=== PATIENT | female | born 1965 | race Caucasian/White ===

== ENCOUNTER 2017-11-09 01:11 | Emergency (ER) | payer MEDICAID, OTHER ==
[2017-11-09] MEDS ORDERED: NORMAL SALINE 1000 ML 1,000 ML IV ONE (06:21)
[2017-11-09] MEDS ORDERED: KETOROLAC TROMETHAMINE INJ/PF 30 MG/1 ML SDV IV ONE (06:21)
--- NOTE | 2017-11-09 06:22 | ER Document Report ---
ED Extremity Problem, Lower - General Chief Complaint: Feet Swelling Stated Complaint: FEET PAIN Time Seen by Provider: 11/09/17 06:01 Notes: 51-year-old female patient to the emergency department complaining of bilateral feet pain and swelling. Patient states that she is on her feet all day long. Cannot even hardly walk on her feet because they hurt so bad. Most of the pain is in the ankles. States that they were very swollen but not swollen at this time. Has some mild redness to the bilateral distal tib-fib area as well. Denies any trauma. Is on a statin for hyperlipidemia. Does smoke. No previous history of blood clots. No previous history of pulmonary embolism. No significant family history of blood clots or PEs. TRAVEL OUTSIDE OF THE [place] IN LAST 30 DAYS: No - HPI Patient complains to provider of: Pain, Swelling Location: Ankle, Foot Occurred: Last week Where: Home - Related Data Allergies/Adverse Reactions: No Known Allergies Allergy (Verified 07/24/13 05:47) Past Medical History - General Information source: Patient - Social History Smoking Status: Current Every Day Smoker Cigarette use (# per day): Yes Chew tobacco use (# tins/day): No Frequency of alcohol use: None Drug Abuse: None Lives with: Family Family History: Reviewed & Not Pertinent Patient has suicidal ideation: No Patient has homicidal ideation: No - Past Medical History Cardiac Medical History: Reports: Hx Hypercholesterolemia, Hx Hypertension Pulmonary Medical History: Denies: Hx Tuberculosis Renal/ Medical History: Denies: Hx Peritoneal Dialysis Psychiatric Medical History: Denies: Hx Depression Past Surgical History: Reports: Hx Abdominal Surgery - hernia repair x 3, Hx Section - 1998, Hx Oral Surgery - wisdom teeth - Immunizations Hx Diphtheria, Pertussis, Tetanus Vaccination: Yes Review of Systems - Review of Systems Notes: Constitutional: denies: Chills, Diaphoresis, Fever, Malaise, Weakness EENT: denies: Eye discharge, Blurred vision, Tearing, Double vision, Nose congestion, Nose discharge, Throat swelling, Mouth pain Cardiovascular: denies: Palpitations, Heart racing, Orthopnea, Dyspnea, Chest pain Respiratory: denies: Cough, Hurts to breathe, Wheezing, Shortness of breath Gastrointestinal: denies: Abdominal pain, Diarrhea, Nausea, Vomiting, Black stools, bright red blood in stool Genitourinary: denies: Burning, Dysuria, Discharge, Frequency, Flank pain, Hematuria Musculoskeletal: Positive for the following: Bilateral feet pain, swelling of bilateral feet and ankles. Hematologic/Lymphatic: denies: Anemia, Easy bleeding, Easy bruising, Blood clots Neurological/Psychological: denies: Confusion, Dementia, Depression, Loss of consciousness Skin: No lesions, no masses, no skin breakdown, no abscesses Physical Exam - Vital signs Vitals: Temp Pulse Resp BP Pulse Ox 98.1 F 71 18 128/71 H 96 11/09/17 01:15 11/09/17 01:15 11/09/17 01:15 11/09/17 01:15 11/09/17 01:15 Interpretation: Normal - General General appearance: Appears well, Alert - HEENT Head: Normocephalic, Atraumatic Eyes: Normal Pupils: PERRL - Respiratory Respiratory status: No respiratory distress Chest status: Nontender Breath sounds: Normal Chest palpation: Normal - Cardiovascular Rhythm: Regular Heart sounds: Normal auscultation Murmur: No - Abdominal Inspection: Normal Distension: No distension Bowel sounds: Normal Tenderness: Nontender Organomegaly: No organomegaly - Back Back: Normal, Nontender - Extremities General upper extremity: Normal inspection, Nontender, Normal color, Normal ROM , Normal temperature General lower extremity: Normal inspection, Normal color, Normal ROM, Normal temperature, Normal weight bearing, Other - Range of motion of the bilateral ankles produces pain. No palpable clicks or audible clicks. There is no significant edema. Good bounding pulses to the bilateral dorsalis pedis and posterior tibialis.. No: Edema, Maksim's sign - Neurological Neuro grossly intact: Yes Cognition: Normal Orientation: AAOx4 [place] Coma Scale Eye Opening: Spontaneous [place] Coma Scale Verbal: Oriented [place] Coma Scale Motor: Obeys Commands [place] Coma Scale Total: 15 Speech: Normal Motor strength normal: LUE, RUE, LLE, RLE Sensory: Normal - Psychological Associated symptoms: Normal affect, Normal mood - Skin Skin Temperature: Warm Skin Moisture: Dry Skin Color: Normal, Other - No obvious rashes seen. There is slight red tint to the bilateral anterior distal tib-fib area Course - Re-evaluation Re-evalutation: 11/09/17 07:17 Uncertain etiology of patient's reported feet swelling and pain. Only pain that I am able to reproduce his some ankle pain bilaterally. There is no obvious swelling at this time. Will do a comprehensive workup at this time to include evaluation of LFTs, kidney function and heart function as well as ruling out DVTs 11/09/17 09:57 Labs are fairly unremarkable. Elevated d-dimer so ordered bilateral lower extremity ultrasounds. These were negative. Patient feeling better at this time. Likely more of an arthritic type problem. Will recommend hydration, anti -inflammatories and rest. Follow-up with regular doctor if symptoms persist return for any worsening symptoms or concerns. 11/09/17 09:58 Laboratory 11/09/17 11/09/17 11/09/17 07:00 07:00 07:00 WBC 7.4 RBC 4.64 Hgb 13.1 Hct 38.6 MCV 83 MCH 28.2 MCHC 33.9 RDW 13.9 Plt Count 275 Seg Neutrophils % 67.1 Lymphocytes % 19.4 Monocytes % 8.9 Eosinophils % 3.9 Basophils % 0.7 Absolute Neutrophils 5.0 Absolute Lymphocytes 1.4 Absolute Monocytes 0.7 Absolute Eosinophils 0.3 Absolute Basophils 0.1 ESR 40 H D-Dimer 0.76 H Sodium 146.7 H Potassium 3.8 Chloride 106 Carbon Dioxide 29 Anion Gap 12 BUN 13 Creatinine 0.54 Est GFR ( Amer) > 60 Est GFR (Non-Af Amer) > 60 Glucose 88 Calcium 9.5 Total Bilirubin 0.5 Direct Bilirubin 0.2 Neonat Total Bilirubin Not Reportable Neonat Direct Bilirubin Not Reportable Neonat Indirect Bili Not Reportable AST 18 ALT 22 Alkaline Phosphatase 71 Creatine Kinase 26 L C-Reactive Protein 14.0 H NT-Pro-B Natriuret Pep Total Protein 6.9 Albumin 4.0 11/09/17 07:00 WBC RBC Hgb Hct MCV MCH MCHC RDW Plt Count Seg Neutrophils % Lymphocytes % Monocytes % Eosinophils % Basophils % Absolute Neutrophils Absolute Lymphocytes Absolute Monocytes Absolute Eosinophils Absolute Basophils ESR D-Dimer Sodium Potassium Chloride Carbon Dioxide Anion Gap BUN Creatinine Est GFR ( Amer) Est GFR (Non-Af Amer) Glucose Calcium Total Bilirubin Direct Bilirubin Neonat Total Bilirubin Neonat Direct Bilirubin Neonat Indirect Bili AST ALT Alkaline Phosphatase Creatine Kinase C-Reactive Protein NT-Pro-B Natriuret Pep 171 Total Protein Albumin - Vital Signs Vital signs: Temp Pulse Resp BP Pulse Ox 98.0 F 64 16 130/74 H 98 11/09/17 06:01 11/09/17 06:01 11/09/17 06:01 11/09/17 06:01 11/09/17 06:01 - Laboratory Result Diagrams: 11/09/17 07:00 11/09/17 07:00 Laboratory results interpreted by me: 11/09/17 11/09/17 11/09/17 07:00 07:00 07:00 ESR 40 H D-Dimer 0.76 H Sodium 146.7 H Creatine Kinase 26 L C-Reactive Protein 14.0 H Discharge - Discharge Clinical Impression: Ankle swelling Qualifiers: Laterality: unspecified laterality Qualified Code(s): M25.473 - Effusion, unspecified ankle Condition: Good Disposition: HOME, SELF-CARE Instructions: Arthralgia ([facility]), Myalagia (Muscle Pain) ([facility]) Additional Instructions: In the event that your symptoms get worse, he develops shortness of breath, fever, worsening symptoms please return for repeat evaluation. Prescriptions: Ketorolac Tromethamine [Toradol 10 mg Tablet] 10 mg PO TID PRN 5 Days #20 tablet PRN Reason: For Breakthrough Pain Referrals: LATRICE MONTGOMERY MD [Primary Care Provider] - Follow up in 3-5 days
[2017-11-09 07:29] LABS: ABSOLUTE BASOPHILS # (AUTO) 0.1 10^3/uL (0.0-0.2); ABSOLUTE EOSINOPHILS # (AUTO) 0.3 10^3/uL (0.0-0.6); ABSOLUTE LYMPHOCYTES (AUTO) 1.4 10^3/uL (0.5-4.7); ABSOLUTE MONOCYTES (AUTO) 0.7 10^3/uL (0.1-1.4); BASOPHILS % (AUTO) 0.7 % (0-2); EOSINOPHILS % (AUTO) 3.9 % (0-6); HEMATOCRIT 38.6 % (36.0-47.0); HEMOGLOBIN 13.1 g/dL (12.0-15.5); LYMPHOCYTES % (AUTO) 19.4 % (13-45); MEAN CORPUSCULAR HEMOGLOBIN 28.2 pg (27.0-33.4); MEAN CORPUSCULAR HGB CONC 33.9 g/dL (32.0-36.0); MEAN CORPUSCULAR VOLUME 83 fl (80-97); MONOCYTES % (AUTO) 8.9 % (3-13); PLATELET COUNT 275 10^3/uL (150-450); RED BLOOD COUNT 4.64 10^6/uL (3.72-5.28); RED CELL DISTRIBUTION WIDTH 13.9 % (11.5-14.0); SEGMENTED NEUTROPHILS % (AUTO) 67.1 % (42-78); TOTAL CELLS COUNTED % (AUTO) 100 %; WHITE BLOOD COUNT 7.4 10^3/uL (4.0-10.5)
[2017-11-09 07:42] LABS: ALANINE AMINOTRANSFERASE 22 U/L (9-52); ALKALINE PHOSPHATASE 71 U/L (38-126); ANION GAP 12 (5-19); ASPARTATE AMINO TRANSFERASE 18 U/L (14-36); BILIRUBIN,DIRECT 0.2 mg/dL (0.0-0.4); BILIRUBIN,TOTAL 0.5 mg/dL (0.2-1.3); BLOOD UREA NITROGEN 13 mg/dL (7-20); CALCIUM 9.5 mg/dL (8.4-10.2); CARBON DIOXIDE 29 mmol/L (22-30); CHLORIDE 106 mmol/L (98-107); CREATINE KINASE 26 U/L (30-135); GLUCOSE 88 mg/dL (75-110); POTASSIUM 3.8 mmol/L (3.6-5.0); SODIUM 146.7 mmol/L (137-145); TOTAL PROTEIN 6.9 g/dL (6.3-8.2)
[2017-11-09 08:22] LABS: ERYTHROCYTE SEDIMENTATION RATE 40 mm/hr (0-30)
[2017-11-09 10:20] VITALS: BP 138/88
--- NOTE | 2017-11-09 10:36 | RADIOLOGY REPORT (SQ) ---
EXAM DESCRIPTION: VENOUS BILATERAL LOWER COMPLETED DATE/TIME: 11/09/2017 10:25 am REASON FOR STUDY: Pain and swelling COMPARISON: None. TECHNIQUE: Dynamic and static walsh scale and color images acquired of both lower extremity venous sy stems. Selected spectral images acquired with additional compression and augmentation maneuvers. Imag es stored on PACS. LIMITATIONS: None. FINDINGS: RIGHT LEG COMMON FEMORAL AND FEMORAL: Normal phasicity, compression and augmentation. No visualized echogenic m aterial on walsh scale. No defects on color images. POPLITEAL: Normal compression and augmentation. No visualized echogenic material on walsh scale. No de fects on color images. CALF VESSELS: Normal compression and augmentation. No visualized echogenic material on walsh scale. No defects on color image. GSV AND SSV: Normal compression. No visualized echogenic material on walsh scale. No defects on color images. ANY DEEP VENOUS INSUFFICIENCY: Not evaluated. ANY EVIDENCE OF POPLITEAL CYST: No. OTHER: No other significant finding. LEFT LEG COMMON FEMORAL AND FEMORAL: Normal phasicity, compression and augmentation. No visualized echogenic m aterial on walsh scale. No defects on color images. POPLITEAL: Normal compression and augmentation. No visualized echogenic material on walsh scale. No de fects on color images. CALF VESSELS: Normal compression and augmentation. No visualized echogenic material on walsh scale. No defects on color images. GSV AND SSV: Normal compression. No visualized echogenic material on walsh scale. No defects on color images. ANY DEEP VENOUS INSUFFICIENCY: Not evaluated. ANY EVIDENCE POPLITEAL CYST: No. OTHER: No other significant finding. IMPRESSION: NO EVIDENCE DVT OR SVT IN EITHER LEG. TECHNICAL DOCUMENTATION: JOB ID: [id number]- All Rights Reserved Reading location - IP/workstation name: [email or web address]
== END 2017-11-09 10:24 | disposition home or self-care (01) ==
LOC: ER 01:11
DX: M25.472 Effusion, left ankle (principal); M25.471 Effusion, right ankle; M79.671 Pain in right foot; M79.672 Pain in left foot; M25.571 Pain in right ankle and joints of right foot; M79.89 Other specified soft tissue disorders; M25.572 Pain in left ankle and joints of left foot; R79.1 Abnormal coagulation profile; E78.5 Hyperlipidemia, unspecified; Z79.899 Other long term (current) drug therapy; F17.210 Nicotine dependence, cigarettes, uncomplicated; E11.9 Type 2 diabetes mellitus without complications; I10 Essential (primary) hypertension
CPT/HCPCS: 99284; 96361; 96374; 36415; 82550; 85025; 85652; 86140; 80053; 85379; 83880; 93970; J1885; J7030

== ENCOUNTER 2018-03-28 00:29 | Observation (INO) | payer MEDICAID, OTHER ==
--- NOTE | 2018-03-28 01:31 | ER Document Report ---
ED General <LISSETTE VELÁSQUEZ - Last Filed: 03/28/18 12:10> - General TRAVEL OUTSIDE OF THE [place] IN LAST 30 DAYS: No <OMAIRA RAINES - Last Filed: 03/28/18 14:38> - General Chief Complaint: Abdominal Pain Stated Complaint: ABDOMINAL PAIN Time Seen by Provider: 03/28/18 01:31 Notes: Patient is a 52-year-old female that presents to the emergency department for chief complaint of nausea and abdominal pain. Patient states that her abdominal pain started this past Tuesday, has been worsening since then with associated nausea but no vomiting. She denies having any diarrhea, she has had a bowel movement earlier today. She is had a history of multiple abdominal hernia surgeries, the last one was in 2011, she states she has not been taking very good care of herself recently, has not follow-up with physicians, and over 2 years. She states that this pain currently is an 8 out of 10, describes as a constant aching sensation in the middle of her abdomen. She states that most of her surgeries use abdominal mass, but they have failed, to resolve her hernias. She denies any any dysuria, hematuria, chest pain, shortness of breath or difficulty breathing, she also denies any recent fevers, chills, night sweats. Past Medical History: Hypertension Past Surgical History: Multiple abdominal hernia surgeries Social History: Denies tobacco, alcohol or drug use. Family History: Reviewed and noncontributory for presenting illness Allergies: Reviewed, see documented allergy list. REVIEW OF SYSTEMS: Other than noted above, the 12 point review of systems was reviewed with the patient and were negative, all pertinent findings are included in the HPI. PHYSICAL EXAMINATION: Vital signs reviewed, nursing noted reviewed. GENERAL: Obese female, appears uncomfortable HEAD: Atraumatic, normocephalic. EYES: Eyes appear normal, extraocular movements intact, sclera anicteric, conjunctiva are normal. ENT: nares patent, oropharynx clear without exudates. Moist mucous membranes. NECK: Normal range of motion, supple without lymphadenopathy LUNGS: Breath sounds clear to auscultation bilaterally and equal. No wheezes rales or rhonchi. HEART: Regular rate and rhythm without murmurs ABDOMEN: Abdomen soft, obese, large ventral hernia palpated, diastases, and large umbilical hernia, that is able to be reduced with manual reduction. EXTREMITIES: Nontender, good range of motion, no pitting or edema. NEUROLOGICAL: No focal neurological deficits. Moves all extremities spontaneously Motor and sensory grossly intact on exam. PSYCH: Normal affect, appears uncomfortable SKIN: Warm, Dry, normal turgor, no rashes or lesions noted on exposed skin (OMAIRA RAINES) - Related Data Allergies/Adverse Reactions: No Known Allergies Allergy (Verified 03/28/18 14:00) Past Medical History - Social History Smoking Status: Never Smoker Family History: Reviewed & Not Pertinent - Past Medical History Cardiac Medical History: Reports: Hx Hypercholesterolemia, Hx Hypertension Pulmonary Medical History: Denies: Hx Tuberculosis Renal/ Medical History: Denies: Hx Peritoneal Dialysis Psychiatric Medical History: Denies: Hx Depression Past Surgical History: Reports: Hx Abdominal Surgery - hernia repair x 3, Hx Section - 1998, Hx Oral Surgery - wisdom teeth - Immunizations Hx Diphtheria, Pertussis, Tetanus Vaccination: Yes <OMAIRA RAINES - Last Filed: 03/28/18 14:38> - Vital signs Vitals: Temp Pulse Resp BP Pulse Ox 97.5 F 99 18 138/94 H 96 03/28/18 01:00 03/28/18 01:00 03/28/18 01:00 03/28/18 01:00 03/28/18 01:00 Course - Laboratory Result Diagrams: 03/28/18 02:00 03/28/18 02:00 - Diagnostic Test Radiology reviewed: Reports reviewed - CT scan suggest small bowel obstruction, small bowel series also suggest small bowel obstruction - Consults Dr. Conley Time consulted: 12:10 Consulted provider: will come to ER - Dr. Conley has been back to reevaluate the patient several times, and he and the patient have agreed to an overnight admission. <LISSETTE VELÁSQUEZ - Last Filed: 03/28/18 12:10> - Laboratory Result Diagrams: 03/28/18 02:00 03/28/18 02:00 <OMAIRA RAINES - Last Filed: 03/28/18 14:38> - Re-evaluation Re-evalutation: Patient seen and examined vital signs reviewed. Laboratory data and imaging were ordered as appropriate for the patient's presenting symptoms and complaint, with consideration of any critical or life threatening conditions that may be associated with their obtained history and exam as noted above. Patient was treated with IV fluids, morphine and Zofran initially for her pain and nausea Results were reviewed when available and demonstrated CT imaging demonstrated possible small bowel obstruction, she had multiple loops of bowel dilated on the left side of the abdomen, she has multiple hernias noted on CT, as well as presence of mesh, given her prior extensive surgical history, I placed a call to the surgeon on-call who came to see the patient in the emergency department for evaluation and consultation. Her blood work was reviewed and was essentially unremarkable, with exception of mild elevation in BUN, consistent with mild dehydration, no leukocytosis, lactic acid normal The patient was re-evaluated and was still having some pain, she was given additional IV fluids, a dose of 0.5 mg of IV Dilaudid, and repeat dose of IV Zofran. Evaluation was most consistent with Bowel obstruction and ventral hernia, complex. Call placed to surgeon national insurance officer Dr. Conley, Patient seen by Dr. Conley with surgery who was able to reduce the patients hernia, small bowel series ordered with gastrograffin, he stated he would follow-up on the results. Patient was signed out to Dr. Velásquez my colleague to determine final disposition. *Note is created using voice recognition software and may contain spelling, syntax or grammatical errors. Laboratory 03/28/18 03/28/18 03/28/18 02:00 02:00 02:28 WBC 8.3 RBC 5.39 H Hgb 14.8 Hct 43.0 MCV 80 MCH 27.5 MCHC 34.5 RDW 14.1 H Plt Count 289 Seg Neutrophils % 83.3 H Lymphocytes % 9.1 L Monocytes % 6.3 Eosinophils % 1.0 Basophils % 0.3 Absolute Neutrophils 6.9 Absolute Lymphocytes 0.8 Absolute Monocytes 0.5 Absolute Eosinophils 0.1 Absolute Basophils 0.0 Sodium 139.1 Potassium 4.0 Chloride 99 Carbon Dioxide 27 Anion Gap 13 BUN 26 H Creatinine 0.57 Est GFR ( Amer) > 60 Est GFR (Non-Af Amer) > 60 Glucose 166 H Lactic Acid 1.2 Calcium 10.3 H Total Bilirubin 1.1 Direct Bilirubin 0.2 Neonat Total Bilirubin Not Reportable Neonat Direct Bilirubin Not Reportable Neonat Indirect Bili Not Reportable AST 18 ALT 22 Alkaline Phosphatase 79 Total Protein 8.0 Albumin 4.7 Lipase 36.7 Urine Color Urine Appearance Urine pH Ur Specific [place] Urine Protein Urine Glucose (UA) Urine Ketones Urine Blood Urine Nitrite Urine Bilirubin Urine Urobilinogen Ur Leukocyte Esterase Urine WBC (Auto) Urine RBC (Auto) U Hyaline Cast (Auto) Urine Bacteria (Auto) Squamous Epi Cells Auto Urine Mucus (Auto) Urine Ascorbic Acid 03/28/18 04:05 WBC RBC Hgb Hct MCV MCH MCHC RDW Plt Count Seg Neutrophils % Lymphocytes % Monocytes % Eosinophils % Basophils % Absolute Neutrophils Absolute Lymphocytes Absolute Monocytes Absolute Eosinophils Absolute Basophils Sodium Potassium Chloride Carbon Dioxide Anion Gap BUN Creatinine Est GFR ( Amer) Est GFR (Non-Af Amer) Glucose Lactic Acid Calcium Total Bilirubin Direct Bilirubin Neonat Total Bilirubin Neonat Direct Bilirubin Neonat Indirect Bili AST ALT Alkaline Phosphatase Total Protein Albumin Lipase Urine Color DARK YELLOW Urine Appearance SLIGHTLY-CLOUDY Urine pH 5.0 Ur Specific [place] 1.035 Urine Protein 30 H Urine Glucose (UA) NEGATIVE Urine Ketones TRACE H Urine Blood NEGATIVE Urine Nitrite NEGATIVE Urine Bilirubin NEGATIVE Urine Urobilinogen 2.0 H Ur Leukocyte Esterase TRACE H Urine WBC (Auto) 8 Urine RBC (Auto) 11 U Hyaline Cast (Auto) 24 Urine Bacteria (Auto) TRACE Squamous Epi Cells Auto 3 Urine Mucus (Auto) MANY Urine Ascorbic Acid NEGATIVE Abdomen/Pelvis CT 03/28/18 00:00 IMPRESSION: Evidence of extensive prior anterior abdominal wall hernia repair with persistent abdominal wall hernias containing multiple loops of bowel. Findings concerning for small bowel obstruction associated with the hernia of the anterior abdominal wall to the left of midline containing a portion of small bowel which is mildly dilated with minor surrounding inflammation. TECHNICAL DOCUMENTATION: Quality ID # 436: Final reports with documentation of one or more dose reduction techniques (e.g., Automated exposure control, adjustment of the mA and/or kV according to patient size, use of iterative reconstruction technique) copyright 2011 [employer]- All Rights Reserved Small Bowel X-Ray 03/28/18 06:17 IMPRESSION: Partial small bowel obstruction related to a single loop in the left upper quadrant. Over the course of 5 hours significant improvement with reduction in the caliber of the distended loops. Contrast is seen in the colon. (OMAIRA RAINES) - Vital Signs Vital signs: Temp Pulse Resp BP Pulse Ox 97.5 F 99 15 148/92 H 100 03/28/18 01:00 03/28/18 01:00 03/28/18 06:25 03/28/18 12:01 03/28/18 12:01 - Laboratory Laboratory results interpreted by me: 03/28/18 03/28/18 03/28/18 02:00 02:00 04:05 RBC 5.39 H RDW 14.1 H Seg Neutrophils % 83.3 H Lymphocytes % 9.1 L BUN 26 H Glucose 166 H Calcium 10.3 H Urine Protein 30 H Urine Ketones TRACE H Urine Urobilinogen 2.0 H Ur Leukocyte Esterase TRACE H Discharge - Discharge Admitting Provider: Surgicalist Unit Admitted: Surgical Floor <LISSETTE VELÁSQUEZ - Last Filed: 03/28/18 12:10> <OMAIRA RAINES - Last Filed: 03/28/18 14:38> - Discharge Clinical Impression: Ventral hernia Qualifiers: Obstruction and gangrene presence: without obstruction or gangrene Qualified Code(s): K43.9 - Ventral hernia without obstruction or gangrene Condition: Stable Disposition: ADMITTED OBSERVATION
[2018-03-28] MEDS ORDERED: NORMAL SALINE 1000 ML 1,000 ML IV ONE ×2 (01:48→08:23)
[2018-03-28] MEDS ORDERED: MORPHINE SULFATE 10 MG/ML INJ IV ONE (01:49)
[2018-03-28] MEDS ORDERED: ONDANSETRON HCL INJ/PF 4 MG/2 ML SDV IV ONE ×3 (01:49→08:46)
[2018-03-28 02:22] LABS: ABSOLUTE EOSINOPHILS # (AUTO) 0.1 10^3/uL (0.0-0.6); ABSOLUTE LYMPHOCYTES (AUTO) 0.8 10^3/uL (0.5-4.7); ABSOLUTE MONOCYTES (AUTO) 0.5 10^3/uL (0.1-1.4); ABSOLUTE NEUT (AUTO) 6.9 10^3/uL (1.7-8.2); BASOPHILS % (AUTO) 0.3 % (0-2); HEMOGLOBIN 14.8 g/dL (12.0-15.5); LYMPHOCYTES % (AUTO) 9.1 % (13-45); MEAN CORPUSCULAR HEMOGLOBIN 27.5 pg (27.0-33.4); MEAN CORPUSCULAR HGB CONC 34.5 g/dL (32.0-36.0); MEAN CORPUSCULAR VOLUME 80 fl (80-97); MONOCYTES % (AUTO) 6.3 % (3-13); PLATELET COUNT 289 10^3/uL (150-450); RED BLOOD COUNT 5.39 10^6/uL (3.72-5.28); RED CELL DISTRIBUTION WIDTH 14.1 % (11.5-14.0); SEGMENTED NEUTROPHILS % (AUTO) 83.3 % (42-78); TOTAL CELLS COUNTED % (AUTO) 100 %; WHITE BLOOD COUNT 8.3 10^3/uL (4.0-10.5)
[2018-03-28 02:36] LABS: ALANINE AMINOTRANSFERASE 22 U/L (9-52); ALBUMIN 4.7 g/dL (3.5-5.0); ALKALINE PHOSPHATASE 79 U/L (38-126); ANION GAP 13 (5-19); ASPARTATE AMINO TRANSFERASE 18 U/L (14-36); BILIRUBIN,DIRECT 0.2 mg/dL (0.0-0.4); BILIRUBIN,TOTAL 1.1 mg/dL (0.2-1.3); BLOOD UREA NITROGEN 26 mg/dL (7-20); CALCIUM 10.3 mg/dL (8.4-10.2); CARBON DIOXIDE 27 mmol/L (22-30); CHLORIDE 99 mmol/L (98-107); GLUCOSE 166 mg/dL (75-110); LIPASE 36.7 U/L (23-300); SODIUM 139.1 mmol/L (137-145)
[2018-03-28 04:22] LABS: APPEARANCE,URINE SLIGHTLY-CLOUDY; BILIRUBIN,URINE NEGATIVE (NEGATIVE); GLUCOSE, URINE NEGATIVE (NEGATIVE); KETONES,URINE TRACE mg/dL (NEGATIVE); LEUKOCYTE ESTERASE,URINE TRACE (NEGATIVE); NITRITE,URINE NEGATIVE (NEGATIVE); PROTEIN,URINE 30 mg/dL (NEGATIVE); URINE SPECIFIC GRAVITY 1.035
[2018-03-28 04:23] LABS: COLOR,URINE DARK YELLOW
--- NOTE | 2018-03-28 05:03 | RADIOLOGY REPORT (SQ) ---
EXAM DESCRIPTION: CT ABDOMEN PELVIS WITH IV CONTRAST COMPLETED DATE/TME: 03/28/2018 00:00 CLINICAL HISTORY: 52 years, Female, abdominal pain, hx multiple hernia repairs COMPARISON: 05/14/2014 CT TECHNIQUE: [id number] Images stored on PACS. All CT scanners at this facility use dose modulation, iterative reconstruction, and/or weight based dosing when appropriate to reduce radiation dose to as low as reasonably achievable (ALARA). [facility]: Dose Right [facility]: CareDose [facility]: Dose Right [facility]: Teradose 4D [facility]: [employer] LIMITATIONS: None. FINDINGS: Limited evaluation of the lung bases is unremarkable. Osseous structures are grossly intact. Fatty infiltrative change to the liver. The spleen, adrenal glands, pancreas, kidneys are unremarkable. The gallbladder is present. Evidence of extensive prior anterior abdominal wall hernia repairs, however there are several anterior abdominal wall defects containing extensive loops of bowel. These areas of hernia formation appear similar to the prior 2014 exam, however on today's study there is a mildly dilated loop of fluid-filled small bowel which extends through one of the anterior abdominal wall defects to the left of midline. Distal loops appear decompressed, and findings are concerning for obstruction. Minor associated inflammatory changes at the hernia site. No free air or free fluid. IMPRESSION: Evidence of extensive prior anterior abdominal wall hernia repair with persistent abdominal wall hernias containing multiple loops of bowel. Findings concerning for small bowel obstruction associated with the hernia of the anterior abdominal wall to the left of midline containing a portion of small bowel which is mildly dilated with minor surrounding inflammation. TECHNICAL DOCUMENTATION: Quality ID # 436: Final reports with documentation of one or more dose reduction techniques (e.g., Automated exposure control, adjustment of the mA and/or kV according to patient size, use of iterative reconstruction technique) copyright 2011 [employer]- All Rights Reserved
[2018-03-28] MEDS ORDERED: RINGERS SOLUTION,LACTATED 1,000 ML IV ONE (05:12)
[2018-03-28] MEDS ORDERED: HYDROMORPHONE HCL INJ/PF 2 MG/ML AMPULE IV ONE ×2 (05:41→08:46)
--- NOTE | 2018-03-28 06:52 | PDOC CONSULTATION ---
Consultation Consult Date: 03/28/18 Consult reason:: abdominal pain, partial small bowel obstruction History of Present Illness Admission Date/PCP: t History of Present Illness: KENDRA MONTES DE OCA is a 52 year old female with a complex known abdominal hernia, who presents to the emergency room with approximately 2 days of increasing abdominal pain with nausea and vomiting she states that the pain is burning in nature and localized in her mid abdomen. There is a history of complex abdominal wall hernias with multiple previous repairs with mesh all of which have failed and the patient has recurrent abdominal hernias absolute that she has had a weight loss of approximately 100 pounds remains with these complex ventral hernias. CT scan done in the emergency room today which shows a possible incomplete all bowel obstruction. She currently currently complains of the abdominal wall burning and nausea. Past Medical History Cardiac Medical History: Reports: Hyperlipidema, Hypertension Pulmonary Medical History: Denies: Tuberculosis Psychiatric Medical History: Denies: Depression Past Surgical History Past Surgical History: Reports: Appendectomy, Section - 1998, Herniorrhaphy - Multiple ventral herniorrhaphies with mesh, appendectomy Social History Smoking Status: Current Every Day Smoker Frequency of Alcohol Use: Social Hx Recreational Drug Use: No Hx Prescription Drug Abuse: No Family History Family History: Reviewed & Not Pertinent Parental Family History Reviewed: No Children Family History Reviewed: Unknown Sibling(s) Family History Reviewed.: Unknown Medication/Allergy Home Medications: Lisinopril [Prinivil 20 mg Tablet] 20 mg PO DAILY 07/30/11 Lorazepam [Ativan 1 mg Tablet] 1 tab PO DAILY PRN 07/30/11 Hydrocodone/Ibuprofen [Reprexain 7.5-200 mg Tablet] 1 each PO TID PRN 07/24/13 [place]-3 Fatty Acids [Fish Oil] 300 mg PO DAILY 07/24/13 Oxycodone HCl/Acetaminophen [Percocet 5-325 mg Tablet] 1 tab PO Q4HP PRN #30 tablet 07/29/13 Ketorolac Tromethamine [Toradol 10 mg Tablet] 10 mg PO TID PRN 5 Days #20 tablet 11/09/17 Ondansetron [Zofran Odt 4 mg Tablet] 1 tab PO Q8H PRN #15 tab.rapdis 03/28/18 Allergies/Adverse Reactions: No Known Allergies Allergy (Verified 07/24/13 05:47) Physical Exam Vital Signs: Temp Pulse Resp BP Pulse Ox 97.5 F 99 15 145/102 H 99 03/28/18 01:00 03/28/18 01:00 03/28/18 06:25 03/28/18 06:25 03/28/18 06:25 Intake & Output 03/26/18 03/27/18 03/28/18 06:59 06:59 06:59 Intake Total 1000 Balance 1000 Weight 99.7 kg General appearance: PRESENT: no acute distress Head exam: PRESENT: atraumatic Eye exam: PRESENT: PERRLA Neck exam: PRESENT: full ROM Respiratory exam: PRESENT: clear to auscultation barb Cardiovascular exam: PRESENT: RRR Pulses: PRESENT: normal femoral pulses GI/Abdominal exam: PRESENT: other - Tender in the midline with palpable mesh in multiple palpable defects in the anterior abdominal wall, in the midline there was a large protruding hernia that was reduced with some compression and once this was completed I could palpate the mesh was free-floating mesh that really fixed and the abdominal musculature. There is at least 2 possibly 3 or 4 different ventral hernia defects resulting in a [place] cheeselike abdomen has a large pannus that extends down to her mons pubis. The hernia was manually reduced. Extremities exam: PRESENT: full ROM Musculoskeletal exam: PRESENT: ambulatory Results Laboratory Results: 03/28/18 02:00 03/28/18 02:00 03/28/18 03/28/18 03/28/18 02:00 02:00 02:28 WBC 8.3 RBC 5.39 H Hgb 14.8 Hct 43.0 MCV 80 MCH 27.5 MCHC 34.5 RDW 14.1 H Plt Count 289 Seg Neutrophils % 83.3 H Lymphocytes % 9.1 L Monocytes % 6.3 Eosinophils % 1.0 Basophils % 0.3 Absolute Neutrophils 6.9 Absolute Lymphocytes 0.8 Absolute Monocytes 0.5 Absolute Eosinophils 0.1 Absolute Basophils 0.0 Sodium 139.1 Potassium 4.0 Chloride 99 Carbon Dioxide 27 Anion Gap 13 BUN 26 H Creatinine 0.57 Est GFR ( Amer) > 60 Est GFR (Non-Af Amer) > 60 Glucose 166 H Lactic Acid 1.2 Calcium 10.3 H Total Bilirubin 1.1 AST 18 ALT 22 Alkaline Phosphatase 79 Total Protein 8.0 Albumin 4.7 Lipase 36.7 Urine Color Urine Appearance Urine pH Ur Specific [place] Urine Protein Urine Glucose (UA) Urine Ketones Urine Blood Urine Nitrite Ur Leukocyte Esterase Urine WBC (Auto) Urine RBC (Auto) 03/28/18 04:05 WBC RBC Hgb Hct MCV MCH MCHC RDW Plt Count Seg Neutrophils % Lymphocytes % Monocytes % Eosinophils % Basophils % Absolute Neutrophils Absolute Lymphocytes Absolute Monocytes Absolute Eosinophils Absolute Basophils Sodium Potassium Chloride Carbon Dioxide Anion Gap BUN Creatinine Est GFR ( Amer) Est GFR (Non-Af Amer) Glucose Lactic Acid Calcium Total Bilirubin AST ALT Alkaline Phosphatase Total Protein Albumin Lipase Urine Color DARK YELLOW Urine Appearance SLIGHTLY-CLOUDY Urine pH 5.0 Ur Specific [place] 1.035 Urine Protein 30 H Urine Glucose (UA) NEGATIVE Urine Ketones TRACE H Urine Blood NEGATIVE Urine Nitrite NEGATIVE Ur Leukocyte Esterase TRACE H Urine WBC (Auto) 8 Urine RBC (Auto) 11 Impressions: Abdomen/Pelvis CT 03/28/18 00:00 IMPRESSION: Evidence of extensive prior anterior abdominal wall hernia repair with persistent abdominal wall hernias containing multiple loops of bowel. Findings concerning for small bowel obstruction associated with the hernia of the anterior abdominal wall to the left of midline containing a portion of small bowel which is mildly dilated with minor surrounding inflammation. TECHNICAL DOCUMENTATION: Quality ID # 436: Final reports with documentation of one or more dose reduction techniques (e.g., Automated exposure control, adjustment of the mA and/or kV according to patient size, use of iterative reconstruction technique) copyright 2011 [employer]- All Rights Reserved Status: Image reviewed by md - CT scan that was done prior to surgical c onsultation was reviewed there is multiple loops of bowel that that protrude on top of the mesh however there is contrast reaching the colon. Assessment & Plan - Diagnosis (2) Ventral hernia Qualifiers: Obstruction and gangrene presence: without obstruction or gangrene Qualified Code(s): K43.9 - Ventral hernia without obstruction or gangrene - Plan Summary Plan Summary: Patient has a very complex hernia with multiple defects in the anterior abdominal wall that have been previously repaired with multiple different pieces of mesh patient states she has had at least 8 or 9 different operations on this with different pieces of mesh placed at different times the operation was in 2011 since that time she is lost approximately 100 pounds now presents with a incarcerated midline hernia resulting from 1 of the defects of the mesh. her hernia been reduced in the emergency room with manual reduction the patient felt better after the reduction however she will recur. After long discussion with the patient is felt that she should undergo a abdomiinal wall reconstruction as an elective procedure. she will undergo a small bowel series in the emergency room today to make sure that the small bowel is has been completely reduced that she does not exhibit a partial or incomplete small bowel obstruction and then she can be followed up in the [facility] for consideration of abdominal wall reconstruction
[2018-03-28] MEDS ORDERED: POTASSI CL 20 MEQ/D5-1/2NS 1L 1,000 ML IV PRN (12:19)
--- NOTE | 2018-03-28 13:17 | RADIOLOGY REPORT (SQ) ---
EXAM DESCRIPTION: SMALL BOWEL SERIES COMPLETED DATE/TIME: 03/28/2018 1:06 pm REASON FOR STUDY: POST-HERNIA REDUCTION COMPARISON: None. FLUOROSCOPY TIME: 0 minutes 17 images saved to PACS. LIMITATIONS: None. PROCEDURE: Initial deal architect image of abdomen acquired, followed by administration of oral contrast. Se rial radiographic images acquired. Fluoroscopic images recorded of the terminal ileum and other donna cated areas. All images stored on PACS. FINDINGS: MEDICATION ADMINISTRATION PROFESSIONAL KUB: Worrisome for upper abdominal obstruction. Multiple surgical clips and hernia clips present. STOMACH: Retained Gastrografin at 0500 hours. DUODENUM: Normal mucosal pattern with adequate distention. No displacement or obstruction. JEJUNUM: There is dilatation of a proximal jejunal loop. This is considerably improved by the latest film at 0500 hours. ILEUM: No contrast seen in the distal jejunum or ileum until the 5 hour film at which point contrast is seen distally and in the rectum. TERMINAL ILEUM AND ILEO-CECAL VALVE: Normal mucosal pattern without "cobble-stoning" or stricture. N ormal compression. PROXIMAL COLON: Contrast is seen in the rectum on the 5 hour film. OTHER: No other significant finding. IMPRESSION: Partial small bowel obstruction related to a single loop in the left upper quadrant. Ov er the course of 5 hours significant improvement with reduction in the caliber of the distended loop s. Contrast is seen in the colon. COMMENT: Quality ID 145: Final reports for procedures using fluoroscopy that document radiation exp osure indices, or exposure time and number of fluorographic images (if radiation exposure indices are not available) TECHNICAL DOCUMENTATION: JOB ID: [id number] [employer]- All Rights Reserved Reading location - IP/workstation name: [email or web address]
[2018-03-28] MEDS: ONDANSETRON HCL INJ/PF 4 MG/2 ML SDV IV PRN ×2 (15:20→22:49)
[2018-03-28] MEDS: FAMOTIDINE INJ/PF 20 MG/2 ML SDV IV SCH ×2 (15:20→21:34)
[2018-03-28] MEDS: HYDROMORPHONE HCL INJ/PF 2 MG/ML AMPULE IV PRN ×3 (15:33→22:49)
[2018-03-28] MEDS: METOCLOPRAMIDE HCL INJ/PF 10 MG/2 ML SDV IV SCH (17:19)
[2018-03-29] MEDS: METOCLOPRAMIDE HCL INJ/PF 10 MG/2 ML SDV IV SCH ×4 (01:03→17:25)
[2018-03-29 05:43] LABS: HEMATOCRIT 43.3 % (36.0-47.0); HEMOGLOBIN 14.5 g/dL (12.0-15.5); MEAN CORPUSCULAR HEMOGLOBIN 27.4 pg (27.0-33.4); MEAN CORPUSCULAR HGB CONC 33.6 g/dL (32.0-36.0); MEAN CORPUSCULAR VOLUME 82 fl (80-97); PLATELET COUNT 279 10^3/uL (150-450); RED BLOOD COUNT 5.31 10^6/uL (3.72-5.28); WHITE BLOOD COUNT 13.3 10^3/uL (4.0-10.5)
[2018-03-29 06:19] LABS: ABSOLUTE LYMPHOCYTES# (MANUAL) 0.8 10^3/uL (0.5-4.7); ABSOLUTE MONOCYTES # (MANUAL) 0.8 10^3/uL (0.1-1.4); ABSOLUTE NEUTROPHILS# (MANUAL) 11.7 10^3/uL (1.7-8.2); BAND NEUTROPHILS % (MANUAL) 1 % (3-5); BASOPHILS % (MANUAL) 0 % (0-2); EOSINOPHILS % (MANUAL) 0 % (0-6); LYMPHOCYTES % (MANUAL) 6 % (13-45); MONOCYTES % (MANUAL) 6 % (3-13); SEGMENTED NEUTROPHILS % (MAN) 87 % (42-78); TOTAL CELLS COUNTED 100
[2018-03-29 06:20] LABS: PLATELET COMMENT ADEQUATE; RBC MORPHOLOGY COMMENT NORMO-CYTIC/CHROMIC
[2018-03-29 06:23] LABS: ANION GAP 10 (5-19); BLOOD UREA NITROGEN 13 mg/dL (7-20); CALCIUM 9.7 mg/dL (8.4-10.2); CARBON DIOXIDE 26 mmol/L (22-30); CHLORIDE 101 mmol/L (98-107); GLUCOSE 141 mg/dL (75-110); POTASSIUM 4.6 mmol/L (3.6-5.0); SODIUM 137.1 mmol/L (137-145)
[2018-03-29] MEDS: ONDANSETRON HCL INJ/PF 4 MG/2 ML SDV IV PRN (08:57)
[2018-03-29] MEDS: FAMOTIDINE INJ/PF 20 MG/2 ML SDV IV SCH ×2 (09:31→21:22)
--- NOTE | 2018-03-29 19:00 | PDOC PROGRESS REPORT ---
Subjective Progress Note for:: 03/29/18 Subjective:: There is a 52-year-old female with a multiply recurrent ventral hernia. She has several pieces of mesh which appear to be completely dissociated from her abdominal wall on CT. The patient reports abdominal pain, constipation, nausea. The patient continues to pass small amounts of flatus. Her pain is cramping and diffuse. It waxes and wanes. Nothing makes it better. Palpation and movement make it worse. Patient denies chest pain, shortness of breath, fevers, chills or blurry vision, orthostasis, fatigue. Reason For Visit: SMALL BOWEL OBSTRUCTION Physical Exam Vital Signs: Temp Pulse Resp BP Pulse Ox 98.8 F 87 18 126/70 H 98 03/29/18 18:00 03/29/18 18:00 03/29/18 18:00 03/29/18 18:00 03/29/18 18:00 Intake & Output 03/28/18 03/29/18 03/30/18 06:59 06:59 06:59 Intake Total 1000 4000 Balance 1000 4000 Weight 99.7 kg 98.8 kg General appearance: PRESENT: obese Head exam: PRESENT: atraumatic, normocephalic Eye exam: PRESENT: EOMI, PERRLA. ABSENT: scleral icterus Mouth exam: PRESENT: moist, neck supple Neck exam: ABSENT: meningismus, tenderness, thyromegaly, tracheal deviation Respiratory exam: PRESENT: unlabored. ABSENT: chest wall tenderness, tachypnea, wheezes Cardiovascular exam: PRESENT: RRR Pulses: PRESENT: normal radial pulses GI/Abdominal exam: PRESENT: hernia, soft, tenderness. ABSENT: distended Rectal exam: PRESENT: deferred Extremities exam: PRESENT: clubbing Musculoskeletal exam: ABSENT: deformity Neurological exam: PRESENT: alert, awake, oriented to person, oriented to place, oriented to time, oriented to situation Psychiatric exam: ABSENT: agitated, anxious, depressed Focused psych exam: ABSENT: delusional Skin exam: ABSENT: cyanosis, erythema, jaundice Results Laboratory Results: 03/29/18 04:20 03/29/18 04:26 03/29/18 03/29/18 04:20 04:26 WBC 13.3 H RBC 5.31 H Hgb 14.5 Hct 43.3 MCV 82 MCH 27.4 MCHC 33.6 RDW 14.0 Plt Count 279 Seg Neutrophils % Not Reportable Lymphocytes % Not Reportable Monocytes % Not Reportable Eosinophils % Not Reportable Basophils % Not Reportable Absolute Neutrophils Not Reportable Absolute Lymphocytes Not Reportable Absolute Monocytes Not Reportable Absolute Eosinophils Not Reportable Absolute Basophils Not Reportable Sodium 137.1 Potassium 4.6 Chloride 101 Carbon Dioxide 26 Anion Gap 10 BUN 13 Creatinine 0.44 L Est GFR ( Amer) > 60 Est GFR (Non-Af Amer) > 60 Glucose 141 H Calcium 9.7 Magnesium 2.0 Impressions: Abdomen/Pelvis CT 03/28/18 00:00 IMPRESSION: Evidence of extensive prior anterior abdominal wall hernia repair with persistent abdominal wall hernias containing multiple loops of bowel. Findings concerning for small bowel obstruction associated with the hernia of the anterior abdominal wall to the left of midline containing a portion of small bowel which is mildly dilated with minor surrounding inflammation. TECHNICAL DOCUMENTATION: Quality ID # 436: Final reports with documentation of one or more dose reduction techniques (e.g., Automated exposure control, adjustment of the mA and/or kV according to patient size, use of iterative reconstruction technique) copyright 2011 [employer]- All Rights Reserved Small Bowel X-Ray 03/28/18 06:17 IMPRESSION: Partial small bowel obstruction related to a single loop in the left upper quadrant. Over the course of 5 hours significant improvement with reduction in the caliber of the distended loops. Contrast is seen in the colon. Assessment & Plan - Diagnosis (1) Ventral hernia Qualifiers: Obstruction and gangrene presence: without obstruction or gangrene Qualified Code(s): K43.9 - Ventral hernia without obstruction or gangrene Is this a current diagnosis for this admission?: Yes - Plan Summary Plan Summary: This is a 52-year-old female with a partially reducible ventral hernia. She reports continued abdominal pain and nausea, however she denies vomiting. The patient reports passing small amounts of flatus. She states that she "feels her intestinal contents moving". I will order her a tap water enema today to assist with mobilization of stool. Continue n.p.o. for now. Repeat abdominal x-rays and lab work tomorrow. The patient does not have signs of peritonitis at present.
[2018-03-30] MEDS ORDERED: METOCLOPRAMIDE HCL INJ/PF 10 MG/2 ML SDV ONE (04:14)
[2018-03-30] MEDS: METOCLOPRAMIDE HCL INJ/PF 10 MG/2 ML SDV IV SCH ×3 (04:14→12:45)
[2018-03-30] MEDS: HYDROMORPHONE HCL INJ/PF 2 MG/ML AMPULE IV PRN (05:43)
[2018-03-30] MEDS: ONDANSETRON HCL INJ/PF 4 MG/2 ML SDV IV PRN (05:44)
[2018-03-30 06:22] LABS: ABSOLUTE EOSINOPHILS # (AUTO) 0.1 10^3/uL (0.0-0.6); ABSOLUTE LYMPHOCYTES (AUTO) 1.4 10^3/uL (0.5-4.7); ABSOLUTE MONOCYTES (AUTO) 0.7 10^3/uL (0.1-1.4); ABSOLUTE NEUT (AUTO) 4.8 10^3/uL (1.7-8.2); BASOPHILS % (AUTO) 0.6 % (0-2); EOSINOPHILS % (AUTO) 1.7 % (0-6); HEMATOCRIT 34.2 % (36.0-47.0); LYMPHOCYTES % (AUTO) 20.2 % (13-45); MEAN CORPUSCULAR HEMOGLOBIN 27.7 pg (27.0-33.4); MEAN CORPUSCULAR HGB CONC 34.5 g/dL (32.0-36.0); MEAN CORPUSCULAR VOLUME 80 fl (80-97); MONOCYTES % (AUTO) 10.1 % (3-13); PLATELET COUNT 196 10^3/uL (150-450); RED BLOOD COUNT 4.26 10^6/uL (3.72-5.28); RED CELL DISTRIBUTION WIDTH 14.2 % (11.5-14.0); SEGMENTED NEUTROPHILS % (AUTO) 67.4 % (42-78); TOTAL CELLS COUNTED % (AUTO) 100 %; WHITE BLOOD COUNT 7.1 10^3/uL (4.0-10.5)
[2018-03-30 06:25] LABS: HEMOGLOBIN 11.8 g/dL (12.0-15.5)
[2018-03-30 06:39] LABS: ANION GAP 6 (5-19); BLOOD UREA NITROGEN 11 mg/dL (7-20); CALCIUM 8.8 mg/dL (8.4-10.2); CARBON DIOXIDE 26 mmol/L (22-30); CHLORIDE 106 mmol/L (98-107); GLUCOSE 94 mg/dL (75-110); POTASSIUM 3.7 mmol/L (3.6-5.0); SODIUM 137.7 mmol/L (137-145)
[2018-03-30] MEDS: FAMOTIDINE INJ/PF 20 MG/2 ML SDV IV SCH (09:56)
[2018-03-30 12:22] VITALS: BP 126/70
--- NOTE | 2018-03-30 13:05 | RADIOLOGY REPORT (SQ) ---
EXAM DESCRIPTION: ABDOMEN 2 VIEWS COMPLETED DATE/TIME: 03/30/2018 12:21 pm REASON FOR STUDY: Flat and upright. Abdominal pain. COMPARISON: Small bowel series [id number] NUMBER OF VIEWS: Two views. TECHNIQUE: Supine and erect/decubitus radiographic images of the abdomen acquired. LIMITATIONS: None. FINDINGS: FREE AIR: None. No abnormal gas collections. LUNG BASES: Clear. BOWEL GAS PATTERN: There is persistent dilatation of and isolated left upper quadrant small bowel loo p. Contrast is seen throughout the colon. Contrast is seen in the rectum. No distal small bowel di latation. CALCIFICATIONS: No suspicious calcifications. SOFT TISSUES: No gross mass or suggestion of organomegaly. HARDWARE: Extensive surgical clips and hernia coils. BONES: No acute fracture. No worrisome bone lesions. OTHER: No other significant finding. IMPRESSION: Persistent isolated dilated small bowel loops in the left upper quadrant. Suspect parti al SBO. No distal obstruction. TECHNICAL DOCUMENTATION: JOB ID: [id number] [employer]- All Rights Reserved Reading location - IP/workstation name: [email or web address]
--- NOTE | 2018-04-05 10:29 | PDOC H&P ---
History of Present Illness Admission Date/PCP: 03/28/18 12:33 LATRICE MONTGOMERY MD History of Present Illness: Patient Name: KENDRA MONTES DE OCA Date of : 65 Patient Status: Observation Attending Provider: SURGICALNOE PAGE MD Date: 03/28/18 06:36 Initialization Date: 03/28/18 06:36 Consultation Consult Date: 03/28/18 Consult reason:: abdominal pain, partial small bowel obstruction History of Present Illness Admission Date/PCP: t History of Present Illness: KENDRA MONTES DE OCA is a 52 year old female with a complex known abdominal hernia, who presents to the emergency room with approximately 2 days of increasing abdominal pain with nausea and vomiting she states that the pain is burning in nature and localized in her mid abdomen. There is a history of complex ab dominal wall hernias with multiple previous repairs with mesh all of which have failed and the patient has recurrent abdominal hernias absolute that she has had a weight loss of approximately 100 pounds remains with these complex ventral hernias. CT scan done in the emergency room today which shows a possible incomplete all bowel obstruction. She currently currently complains of the abdominal wall burning and nausea. Past Medical History Cardiac Medical History: Reports: Hyperlipidema, Hypertension Pulmonary Medical History: Denies: Tuberculosis Psychiatric Medical History: Denies: Depression Past Surgical History Past Surgical History: Reports: Appendectomy, Section - 1998, Herniorrhaphy - Multiple ventral herniorrhaphies with mesh, appendectomy Social History Smoking Status: Current Every Day Smoker Frequency of Alcohol Use: Social Hx Recreational Drug Use: No Hx Prescription Drug Abuse: No Family History Family History: Reviewed & Not Pertinent Parental Family History Reviewed: No Children Family History Reviewed: Unknown Sibling(s) Family History Reviewed.: Unknown Medication/Allergy Home Medications: Lisinopril [Prinivil 20 mg Tablet] 20 mg PO DAILY 07/30/11 Lorazepam [Ativan 1 mg Tablet] 1 tab PO DAILY PRN 07/30/11 Hydrocodone/Ibuprofen [Reprexain 7.5-200 mg Tablet] 1 each PO TID PRN 07/24/13 [place]-3 Fatty Acids [Fish Oil] 300 mg PO DAILY 07/24/13 Oxycodone HCl/Acetaminophen [Percocet 5-325 mg Tablet] 1 tab PO Q4HP PRN #30 tablet 07/29/13 Ketorolac Tromethamine [Toradol 10 mg Tablet] 10 mg PO TID PRN 5 Days #20 tablet 11/09/17 Ondansetron [Zofran Odt 4 mg Tablet] 1 tab PO Q8H PRN #15 tab.rapdis 03/28/18 Allergies/Adverse Reactions: No Known Allergies Allergy (Verified 07/24/13 05:47) Physical Exam Vital Signs: Temp Pulse Resp BP Pulse Ox 97.5 F 99 15 145/102 H 99 03/28/18 01:00 03/28/18 01:00 03/28/18 06:25 03/28/18 06:25 03/28/18 06:25 Intake & Output 03/26/18 03/27/18 03/28/18 06:59 06:59 06:59 Intake Total 1000 Balance 1000 Weight 99.7 kg General appearance: PRESENT: no acute distress Head exam: PRESENT: atraumatic Eye exam: PRESENT: PERRLA Neck exam: PRESENT: full ROM Respiratory exam: PRESENT: clear to auscultation barb Cardiovascular exam: PRESENT: RRR Pulses: PRESENT: normal femoral pulses GI/Abdominal exam: PRESENT: other - Tender in the midline with palpable mesh in multiple palpable defects in the anterior abdominal wall, in the midline there was a large protruding hernia that was reduced with some compression and once this was completed I could palpate the mesh was free-floating mesh that really fixed and the abdominal musculature. There is at least 2 possibly 3 or 4 different ventral hernia defects resulting in a [place] cheeselike abdomen has a large pannus that extends down to her mons pubis. The hernia was manually reduced. Extremities exam: PRESENT: full ROM Musculoskeletal exam: PRESENT: ambulatory Results Laboratory Results: 03/28/18 02:00 03/28/18 02:00 03/28/18 03/28/18 03/28/18 02:00 02:00 02:28 WBC 8.3 RBC 5.39 H Hgb 14.8 Hct 43.0 MCV 80 MCH 27.5 MCHC 34.5 RDW 14.1 H Plt Count 289 Seg Neutrophils % 83.3 H Lymphocytes % 9.1 L Monocytes % 6.3 Eosinophils % 1.0 Basophils % 0.3 Absolute Neutrophils 6.9 Absolute Lymphocytes 0.8 Absolute Monocytes 0.5 Absolute Eosinophils 0.1 Absolute Basophils 0.0 Sodium 139.1 Potassium 4.0 Chloride 99 Carbon Dioxide 27 Anion Gap 13 BUN 26 H Creatinine 0.57 Est GFR ( Amer) > 60 Est GFR (Non-Af Amer) > 60 Glucose 166 H Lactic Acid 1.2 Calcium 10.3 H Total Bilirubin 1.1 AST 18 ALT 22 Alkaline Phosphatase 79 Total Protein 8.0 Albumin 4.7 Lipase 36.7 Urine Color Urine Appearance Urine pH Ur Specific [place] Urine Protein Urine Glucose (UA) Urine Ketones Urine Blood Urine Nitrite Ur Leukocyte Esterase Urine WBC (Auto) Urine RBC (Auto) 03/28/18 04:05 WBC RBC Hgb Hct MCV MCH MCHC RDW Plt Count Seg Neutrophils % Lymphocytes % Monocytes % Eosinophils % Basophils % Absolute Neutrophils Absolute Lymphocytes Absolute Monocytes Absolute Eosinophils Absolute Basophils Sodium Potassium Chloride Carbon Dioxide Anion Gap BUN Creatinine Est GFR ( Amer) Est GFR (Non-Af Amer) Glucose Lactic Acid Calcium Total Bilirubin AST ALT Alkaline Phosphatase Total Protein Albumin Lipase Urine Color DARK YELLOW Urine Appearance SLIGHTLY-CLOUDY Urine pH 5.0 Ur Specific [place] 1.035 Urine Protein 30 H Urine Glucose (UA) NEGATIVE Urine Ketones TRACE H Urine Blood NEGATIVE Urine Nitrite NEGATIVE Ur Leukocyte Esterase TRACE H Urine WBC (Auto) 8 Urine RBC (Auto) 11 Impressions: Abdomen/Pelvis CT 03/28/18 00:00 IMPRESSION: Evidence of extensive prior anterior abdominal wall hernia repair with persistent abdominal wall hernias containing multiple loops of bowel. Findings concerning for small bowel obstruction associated with the hernia of the anterior abdominal wall to the left of midline containing a portion of small bowel which is mildly dilated with minor surrounding inflammation. TECHNICAL DOCUMENTATION: Quality ID # [id number]: Final reports with documentation of one or more dose reduction techniques (e.g., Automated exposure control, adjustment of the mA and/or kV according to patient size, use of iterative reconstruction technique) copyright 2011 [employer]- All Rights Reserved Status: Image reviewed by pr - CT scan that was done prior to surgical consultation was reviewed there is multiple loops of bowel that that protrude on top of the mesh however there is contrast reaching the colon. Assessment & Plan - Diagnosis (2) Ventral hernia Qualifiers: Obstruction and gangrene presence: without obstruction or gangrene Qualified Code(s): K43.9 - Ventral hernia without obstruction or gangrene - Plan Summary Plan Summary: Patient has a very complex hernia with multiple defects in the anterior abdominal wall that have been previously repaired with multiple different pieces of mesh patient states she has had at least 8 or 9 different operations on this with different pieces of mesh placed at different times the operation was in 2011 since that time she is lost approximately 100 pounds now presents with a incarcerated midline hernia resulting from 1 of the defects of the mesh. her hernia been reduced in the emergency room with manual reduction the patient felt better after the reduction however she will recur. After long discussion with the patient is felt that she should undergo a abdomiinal wall reconstruction as an elective procedure. she will undergo a small bowel series in the emergency room today to make sure that the small bowel is has been completely reduced that she does not exhibit a partial or incomplete small bowel obstruction and then she can be followed up in the [facility] for consideration of abdominal wall reconstruction Past Medical History Cardiac Medical History: Reports: Hyperlipidema, Hypertension Pulmonary Medical History: Denies: Tuberculosis Psychiatric Medical History: Denies: Depression Past Surgical History Past Surgical History: Reports: Appendectomy, Section - 1998, Herniorrhaphy - Multiple ventral herniorrhaphies with mesh, appendectomy Social History Smoking Status: Current Some Day Smoker Frequency of Alcohol Use: Social Hx Recreational Drug Use: No Hx Prescription Drug Abuse: No - Advance Directive Resuscitation Status: Full Code Family History Family History: Reviewed & Not Pertinent Parental Family History Reviewed: No Children Family History Reviewed: NA Sibling(s) Family History Reviewed.: NA Medication/Allergy Home Medications: No Home Medications 03/28/18 Allergies/Adverse Reactions: No Known Allergies Allergy (Verified 03/28/18 14:00) Physical Exam Vital Signs: Temp Pulse Resp BP Pulse Ox 98.4 F 68 17 126/70 H 94 03/30/18 12:18 03/30/18 12:18 03/30/18 12:18 03/30/18 12:18 03/30/18 12:18 Results Laboratory Results: 03/30/18 05:10 03/30/18 05:10 Impressions: Abdomen/Pelvis CT 03/28/18 00:00 IMPRESSION: Evidence of extensive prior anterior abdominal wall hernia repair with persistent abdominal wall hernias containing multiple loops of bowel. Findings concerning for small bowel obstruction associated with the hernia of the anterior abdominal wall to the left of midline containing a portion of small bowel which is mildly dilated with minor surrounding inflammation. TECHNICAL DOCUMENTATION: Quality ID # 436: Final reports with documentation of one or more dose reduction techniques (e.g., Automated exposure control, adjustment of the mA and/or kV according to patient size, use of iterative reconstruction technique) copyright 2011 [employer]- All Rights Reserved Small Bowel X-Ray 03/28/18 06:17 IMPRESSION: Partial small bowel obstruction related to a single loop in the left upper quadrant. Over the course of 5 hours significant improvement with reduction in the caliber of the distended loops. Contrast is seen in the colon. Abdomen X-Ray 03/30/18 06:00 IMPRESSION: Persistent isolated dilated small bowel loops in the left upper quadrant. Suspect partial SBO. No distal obstruction. Assessment & Plan - Diagnosis (2) Ventral hernia Qualifiers: Obstruction and gangrene presence: without obstruction or gangrene Qualified Code(s): K43.9 - Ventral hernia without obstruction or gangrene Is this a current diagnosis for this admission?: Yes
--- NOTE | 2018-04-06 10:22 | DISCHARGE SUMMARY E ---
Discharge Summary NAME: KENDRA MONTES DE OCA : 1965 AGE: 52Y ADMITTED: 03/28/2018 DISCHARGED: 03/30/2018 SUMMARY OF HOSPITALIZATION: The patient is a 52-year-old white female with history of known complex abdominal wall hernias and morbid obesity. She presented to the Emergency Department complaining of abdominal pain. She was evaluated with CT scan of the abdomen and was found to have findings consistent with partial small bowel obstruction, with a component of constipation. She was admitted to the surgical service for further treatment. The patient was kept n.p.o. on IV fluids. She was given cathartics. Eventually her GI tract began functioning. She had no further nausea or vomiting. Extensive conversation was held between the surgeons and the patient regarding operative intervention and options versus other options. The decision was made to defer any definitive reoperation at this time. On the third hospital day she was tolerating a diet and ready for discharge home. FINAL DIAGNOSIS: 1. PARTIAL SMALL BOWEL OBSTRUCTION, RESOLVED; POSSIBLY RELATED TO CONSTIPATION. 2. MORBID OBESITY. 3. MULTIPLE PREVIOUS ABDOMINAL WALL HERNIA REPAIRS. DISPOSITION: The patient was discharged to home care with family. Follow up with [facility], Dr. Quintin Conley. She will continue her preadmission medications and diet. DICTATING PHYSICIAN: LAYO HUNTLEY M.D. [id number] Y#: [id number] ID: [id number] JOB#: [id number] ACCT: [id number] cc:Hernan WASHBURN M.D. >
== END 2018-03-30 13:30 | disposition home or self-care (01) ==
LOC: ER 00:29 → EH 12:33 → 4N 14:00
PROVIDERS: ATTEND Surgery
DX: K56.600 Partial intestinal obstruction, unspecified as to cause (principal); E66.01 Morbid (severe) obesity due to excess calories; K59.00 Constipation, unspecified; K43.9 Ventral hernia without obstruction or gangrene; F17.200 Nicotine dependence, unspecified, uncomplicated; R14.3 Flatulence; I10 Essential (primary) hypertension; Z87.19 Personal history of other diseases of the digestive system; Z98.890 Other specified postprocedural states; Z23 Encounter for immunization; Z90.49 Acquired absence of other specified parts of digestive tract; Z79.899 Other long term (current) drug therapy
CPT/HCPCS: 96376; 99285; 96361; 96374; 96375; 36415 ×3; 83690; 83735; 85025 ×3; 80048 ×2; 80053; 81001; 83605; 74019; 74250; 74177; 90686; G0378 ×3; G0008; J2765 ×3; J2270; J1170 ×2; J3480; J2405 ×3; J7030; J7120; S0028 ×3; 90471

== ENCOUNTER 2019-07-09 12:02 | Inpatient (IN) | payer OTHER ==
[2019-07-09] MEDS ORDERED: NORMAL SALINE 1000 ML 1,000 ML IV ONE ×2 (12:38→20:39)
[2019-07-09] MEDS ORDERED: ONDANSETRON HCL INJ/PF 4 MG/2 ML SDV IV ONE (12:40)
[2019-07-09] MEDS ORDERED: MORPHINE SULFATE 10 MG/ML INJ IV ONE (12:41)
[2019-07-09 12:54] LABS: ALBUMIN 4.6 g/dL (3.5-5.0); ALKALINE PHOSPHATASE 79 U/L (38-126); ASPARTATE AMINO TRANSFERASE 16 U/L (14-36); BILIRUBIN,DIRECT 0.1 mg/dL (0.0-0.4); BILIRUBIN,TOTAL 0.5 mg/dL (0.2-1.3); BLOOD UREA NITROGEN 25 mg/dL (7-20); CHLORIDE 95 mmol/L (98-107); GLUCOSE 269 mg/dL (75-110); POTASSIUM 3.5 mmol/L (3.6-5.0); TOTAL PROTEIN 8.1 g/dL (6.3-8.2)
[2019-07-09 12:58] LABS: CREATINE KINASE < 20 U/L (30-135)
[2019-07-09 12:59] LABS: HEMATOCRIT 46.8 % (36.0-47.0); HEMOGLOBIN 16.6 g/dL (12.0-15.5); MEAN CORPUSCULAR HEMOGLOBIN 29.4 pg (27.0-33.4); MEAN CORPUSCULAR HGB CONC 35.5 g/dL (32.0-36.0); MEAN CORPUSCULAR VOLUME 83 fl (80-97); PLATELET COUNT 612 10^3/uL (150-450); RED BLOOD COUNT 5.64 10^6/uL (3.72-5.28); RED CELL DISTRIBUTION WIDTH 13.9 % (11.5-14.0); WHITE BLOOD COUNT 19.3 10^3/uL (4.0-10.5)
[2019-07-09 13:05] LABS: CARBON DIOXIDE 14 mmol/L (22-30)
[2019-07-09 13:06] LABS: ANION GAP 22 (5-19)
--- NOTE | 2019-07-09 13:12 | ER Document Report ---
Entered by KAILASH SOTO SCRIBE 07/09/19 1221 Acting as scribe for:LISSETTE SALEH MD ED GI/ - General Mode of Arrival: Ambulatory Information source: Patient TRAVEL OUTSIDE OF THE [place] IN LAST 30 DAYS: No <LISSETTE SALEH - Last Filed: 07/09/19 16:19> <KORI ALVAREZ JR - Last Filed: 07/09/19 19:25> <CRANEDEVI - Last Filed: 07/09/19 20:41> - General Stated Complaint: NAUSEA/VOMITING Time Seen by Provider: 07/09/19 12:17 Primary Care Provider: LATRICE MONTGOMERY MD [Primary Care Provider] - Follow up as needed Notes: This 53 year old female patient presents to the emergency department today with complaints of abdominal pain. Patient has a history of multiple hernia repaired with mesh and she was seen here on 03/27/19 with an SBO and she was told at that time they recommended surgery but she declined at that time. Patient states that she has also had vomiting and a cough for this same amount of time. Patient states that she has been coughing up thick off-white colored sputum. Patient states she does not remember when her last bowel movement was, but she states it was before all these symptoms began. (LISSETTE SALEH) - Related Data Allergies/Adverse Reactions: No Known Allergies Allergy (Verified 03/28/18 14:00) Past Medical History - General Information source: Patient - Social History Smoking Status: Current Some Day Smoker Cigarette use (# per day): Yes Frequency of alcohol use: None Drug Abuse: None Lives with: Family Family History: Reviewed & Not Pertinent - Past Medical History Cardiac Medical History: Reports: Hx Hypercholesterolemia, Hx Hypertension Past Surgical History: Reports: Hx Appendectomy, Hx Section - 1998, Hx Herniorrhaphy - Multiple ventral herniorrhaphies with mesh, appendectomy, Hx Oral Surgery - wisdom teeth - Immunizations Hx Diphtheria, Pertussis, Tetanus Vaccination: Yes <LISSETTE SALEH - Last Filed: 07/09/19 16:19> Review of Systems - Review of Systems Constitutional: No symptoms reported EENT: No symptoms reported Cardiovascular: No symptoms reported Respiratory: See HPI, Cough Gastrointestinal: See HPI, Abdominal pain, Nausea, Vomiting, Constipation Genitourinary: No symptoms reported Female Genitourinary: No symptoms reported Musculoskeletal: No symptoms reported Skin: No symptoms reported Hematologic/Lymphatic: No symptoms reported Neurological/Psychological: No symptoms reported -: Yes All other systems reviewed and negative <LISSETTE SALEH - Last Filed: 07/09/19 16:19> Physical Exam <LISSETTE SALEH - Last Filed: 07/09/19 16:19> - Vital signs Vitals: Temp Pulse Resp BP Pulse Ox 98.2 F 110 H 25 H 137/90 H 94 07/09/19 12:42 07/09/19 12:42 07/09/19 12:42 07/09/19 12:42 07/09/19 12:42 - Notes Notes: Physical Exam: General: Alert, appears uncomfortable. HEENT: Normocephalic. Atraumatic. PERRL. Extraocular movements intact. Oropharynx clear. Neck: Supple. Non-tender. Respiratory: Mild respiratory distress. Wheezing and rhonchi bilaterally. Thick-off white sputum. Cardiovascular: Regular rate and rhythm. Abdominal: Multiple large abdominal wall hernias. Emesis bag at bedside has dark liquid consistent with SBO. Right sided hernias are firm with large bowel and likely constipation. Left sided hernias appear to have large amounts of fluid wh en intestines are palpated consistent with small bowel obstruction. Back: No gross abnormalities. Extremities: Moves all four extremities. Upper extremities: Normal inspection. Normal ROM. Lower extremities: Normal inspection. No edema. Normal ROM. Neurological: Normal cognition. AAOx4. Normal speech. Psychological: Normal affect. Normal Mood. Skin: Warm. Dry. Normal color. (LISSETTE SALEH) Course - Laboratory Result Diagrams: 07/09/19 12:08 07/09/19 12:08 - EKG Interpretation by In EKG shows normal: Sinus rhythm, [place], Intervals, QRS Complexes, ST-T Waves Rate: Tachycardia - 106 [place]/QRS: Left axis deviation, IVCD When compared to previous EKG there are: No significant change - Transfer of Care Care transferred to following provider: Dr. Alvarez <LISSETTE SALEH - Last Filed: 07/09/19 16:19> - Laboratory Result Diagrams: 07/09/19 12:08 07/09/19 12:08 <KORI ALVAREZ JR - Last Filed: 07/09/19 19:25> - Laboratory Result Diagrams: 07/09/19 12:08 07/09/19 12:08 - Diagnostic Test Radiology reviewed: Image reviewed, Reports reviewed <DEVI CRANE - Last Filed: 07/09/19 20:41> - Re-evaluation Re-evalutation: 07/09/19 16:19 NG tube was placed and approximately 750 mL's of dark liquid was aspirated. (LISSETTE SALEH) 07/09/19 20:37 The patient was signed out to me at shift change since the Surgeon science consultant had not seen the patient in the ER. Dr. Batista of Surgery evaluated the patient and he feels she is safe for a medical admission. Dr. Clifton of the Hospitalist Service was consulted and he admitted the patient. (DEVI CRANE) - Vital Signs Vital signs: Temp Pulse Resp BP Pulse Ox 98.2 F 110 H 25 H 137/90 H 94 07/09/19 12:42 07/09/19 12:42 07/09/19 12:42 07/09/19 12:42 07/09/19 12:42 - Laboratory Laboratory results interpreted by me: 07/09/19 07/09/19 12:08 12:08 WBC 19.3 H RBC 5.64 H Hgb 16.6 H Plt Count 612 H Band Neutrophils % 13 H Lymphocytes % (Manual) 4 L Monocytes % (Manual) 14 H Abs Neuts (Manual) 15.2 H Abs Monocytes (Manual) 2.7 H Sodium 130.8 L Potassium 3.5 L Chloride 95 L Carbon Dioxide 14 L Anion Gap 22 H BUN 25 H Est GFR (MDRD) Non-Af 52 L Glucose 269 H Creatine Kinase < 20 L - Transfer of Care Notes: 07/09/19 16:[address] scan of the abdomen pelvis and chest with IV and oral contrast. (LISSETTE SALEH) Critical Care Note - Critical Care Note Total time excluding time spent on procedures (mins): 90 <KORI ALVAREZ JR - Last Filed: 07/09/19 19:25> - Critical Care Note Comments: I discussed this case @ [address] Tank Batista who advised this patient should be turned over immediately to hospitalist. I discussed this case with Dr. Martinez and he advises calling Dr. Garrido when CTs are performed and done. This case was again discussed with Dr. Batista at 1911 and he was being overwhelmed with a lot of patients and asked that Dr. Estuardo Hanks to accept the patient but it 1916 Dr. Marte advised he has gotten hit with at least 2 patients himself and will have to refer back to surgery. Dr. Tank Batista called back at 1919 and he advised advancing the NG tube 10 cm and giving the patient bicarb and he will evaluate the patient in the room. (KORI ALVAREZ JR) Discharge <LISSETTE SALEH - Last Filed: 07/09/19 16:19> <KORI ALVAREZ JR - Last Filed: 07/09/19 19:25> - Discharge Admitting Provider: Etienne (Hospitalist) Unit Admitted: Medical Floor <DEVI CRANE - Last Filed: 07/09/19 20:41> - Discharge Clinical Impression: Bronchitis, Dehydration, Hyponatremia, Small bowel obstruction Nausea & vomiting Qualifiers: Vomiting type: unspecified Vomiting Intractability: intractable Qualified Code(s): R11.2 - Nausea with vomiting, unspecified Leukocytosis Qualifiers: Leukocytosis type: bandemia Qualified Code(s): D72.825 - Bandemia Condition: Stable Disposition: ADMITTED INPATIENT Referrals: LATRICE MONTGOMERY MD [Primary Care Provider] - Follow up as needed I personally performed the services described in the documentation, reviewed and edited the documentation which was dictated to the scribe in my presence, and it accurately records my words and actions.
[2019-07-09 13:20] LABS: BASOPHILS % (MANUAL) 0 % (0-2); EOSINOPHILS % (MANUAL) 0 % (0-6); SEGMENTED NEUTROPHILS % (MAN) 65 % (42-78); TOTAL CELLS COUNTED 100
[2019-07-09 13:21] LABS: ABSOLUTE LYMPHOCYTES# (MANUAL) 1.4 10^3/uL (0.5-4.7); ABSOLUTE MONOCYTES # (MANUAL) 2.7 10^3/uL (0.1-1.4); BAND NEUTROPHILS % (MANUAL) 13 % (3-5); LYMPHOCYTES % (MANUAL) 4 % (13-45); METAMYELOCYTES % (MANUAL) 1 % (0-1); MONOCYTES % (MANUAL) 14 % (3-13); PLATELET CLUMPS PRESENT; PLATELET COMMENT INCREASED; POLYCHROMASIA SLIGHT
--- NOTE | 2019-07-09 14:11 | EKG REPORT ---
SEVERITY:- ABNORMAL ECG - SINUS TACHYCARDIA NONSPECIFIC IVCD WITH LAD CONSIDER ANTERIOR INFARCT : Confirmed by: Erin Wahl MD 09-Jul-2019 14:11:00
[2019-07-09] MEDS ORDERED: PIPERACILLIN/TAZOBACTAM 3.375 GM VIAL IV ONE (14:16)
--- NOTE | 2019-07-09 14:37 | PDOC CONSULTATION ---
Consultation Consult Date: 07/09/19 Attending physician:: RIKI SALEH Provider Consulted: LAYO HUNTLEY Consult reason:: Abdominal pain nausea and vomiting History of Present Illness Admission Date/PCP: LATRICE MONTGOMERY MD History of Present Illness: KENDRA MONTES DE OCA is a 53 year old female Presents via ground rescue with a several day history of abdominal pain nausea vomiting decreased bowel movements. Patient is also had cough and productive sputum. She is evaluated emergency department found to have a distended abdomen, no leukocytosis. Surgery was consulted. Patient well-known to [facility]. She has a history of morbid obesity, multiple abdominal wall hernias. In 2013 she underwent open hernia repair by Dr. Disla. Since then she has had recurrent hernias, symptomatic, occasionally with a small bowel obstruction, resolving nonoperatively. She is offered referral to tertiary care institution for abdominal wall reconstruction but declined. She is a smoker has COPD and chronic cough. Surgery was consulted for possible small bowel o bstruction. Films pending at time of this dictation Past Medical History Past Medical History: Obesity, hyperlipidemia, COPD Cardiac Medical History: Reports: Hyperlipidema, Hypertension Pulmonary Medical History: Denies: Tuberculosis Psychiatric Medical History: Reports: Depression Past Surgical History Past Surgical History: Multiple previous abdominal wall hernias Past Surgical History: Reports: Appendectomy, Section - 1998, Herniorrhaphy - Multiple ventral herniorrhaphies with mesh, appendectomy Social History Lives with: Family Smoking Status: Current Some Day Smoker Electronic Cigarette use?: No Frequency of Alcohol Use: Social Hx Recreational Drug Use: No Hx Prescription Drug Abuse: No Family History Family History: None, Reviewed & Not Pertinent Parental Family History Reviewed: No Children Family History Reviewed: No Sibling(s) Family History Reviewed.: No Medication/Allergy Home Medications: No Home Medications 03/28/18 Allergies/Adverse Reactions: No Known Allergies Allergy (Verified 03/28/18 14:00) Review of Systems ROS unobtainable: Other - Due to limited time exposed to the patient due to rule out COVID status Physical Exam Vital Signs: Temp Pulse Resp BP Pulse Ox 98.2 F 110 H 25 H 137/90 H 94 07/09/19 12:42 07/09/19 12:42 07/09/19 12:42 07/09/19 12:42 07/09/19 12:42 General appearance: PRESENT: mild distress, morbidly obese, other - Skin pale, poor turgor Eye exam: PRESENT: conjunctiva pale Mouth exam: PRESENT: dry mucosa Neck exam: PRESENT: full ROM Respiratory exam: PRESENT: rhonchi Cardiovascular exam: PRESENT: RRR Pulses: PRESENT: normal carotid pulses, normal radial pulses GI/Abdominal exam: PRESENT: other - Abdomen distended multiple irregular abdominal wall hernias with thin skin, soft, no rigidity no peritoneal signs at this time; exam limited due to pain medication received Extremities exam: PRESENT: other - +1 edema Neurological exam: PRESENT: other - Patient agitated,, no focal deficits Psychiatric exam: PRESENT: agitated Results Laboratory Results: 07/09/19 12:08 07/09/19 12:08 07/09/19 07/09/19 07/09/19 12:08 12:08 13:00 WBC 19.3 H RBC 5.64 H Hgb 16.6 H Hct 46.8 MCV 83 MCH 29.4 MCHC 35.5 RDW 13.9 Plt Count 612 H Seg Neutrophils % Not Reportable Sodium 130.8 L Potassium 3.5 L Chloride 95 L Carbon Dioxide 14 L Anion Gap 22 H BUN 25 H Creatinine 1.10 Est GFR ( Amer) > 60 Glucose 269 H Calcium 10.0 Total Bilirubin 0.5 AST 16 Alkaline Phosphatase 79 Total Protein 8.1 Albumin 4.6 Urine Color Cancelled Urine Appearance Cancelled Urine pH Cancelled Ur Specific [place] Cancelled Urine Protein Cancelled Urine Glucose (UA) Cancelled Urine Ketones Cancelled Urine Blood Cancelled Urine Nitrite Cancelled Ur Leukocyte Esterase Cancelled Urine WBC (Auto) Cancelled Urine RBC (Auto) Cancelled 07/09/19 07/09/19 12:08 12:08 Creatine Kinase < 20 L Troponin I < 0.012 Assessment & Plan - Diagnosis (1) Partial small bowel obstruction Is this a current diagnosis for this admission?: Yes Plan: Impression: Sepsis; small bowel obstruction, likely partial, based on clinical presentation and physical exam; await imaging studies; leukocytosis, metabolic acidosis, chronic cough may be related to intra-abdominal or intrathoracic pathology. Chest x-ray pending; patient does not have peritoneal signs on exam, however limited secondary to patient receiving pain medication. Recommendations: 1. Patient needs admission to the hospital service with surgery consulting; fluid resuscitation, electrolyte orthodox, Ferguson antibiotic therapy, pul monary support as necessary, 2. Agree with nasogastric decompression; we will follow-up on x-rays, additional imaging if ordered pending patient's ability to tolerate such 3. I spoke with Dr. Riki Gutierrez regarding the above. We will follow patient closely with you. (2) Obesity Is this a current diagnosis for this admission?: Yes (3) Smoker Is this a current diagnosis for this admission?: Yes (4) Dehydration Is this a current diagnosis for this admission?: Yes (5) COPD (chronic obstructive pulmonary disease) Is this a current diagnosis for this admission?: Yes (6) Leukocytosis Is this a current diagnosis for this admission?: Yes (7) Ventral hernia Qualifiers: Obstruction and gangrene presence: without obstruction or gangrene Qualified Code(s): K43.9 - Ventral hernia without obstruction or gangrene Is this a current diagnosis for this admission?: Yes (8) Metabolic acidosis Is this a current diagnosis for this admission?: Yes - Time Time Spent: 30 to 50 Minutes Smoking Cessation Education: 3 to 10 minutes Medications reviewed and adjusted accordingly: Yes Anticipated discharge: Home
--- NOTE | 2019-07-09 15:22 | RADIOLOGY REPORT (SQ) ---
EXAM DESCRIPTION: KUB/ABDOMEN (SINGLE VIEW) IMAGES COMPLETED DATE/TIME: 07/09/2019 3:05 pm REASON FOR STUDY: upright COMPARISON: None. NUMBER OF VIEWS: One view. TECHNIQUE: Supine radiographic image of the abdomen acquired. LIMITATIONS: None. FINDINGS: BOWEL GAS PATTERN: Normal bowel gas pattern. No dilated loops. CALCIFICATIONS: No suspicious calcifications. SOFT TISSUES: No gross mass or suggestion of organomegaly. HARDWARE: NG tube tip overlies the left mid abdomen probably overlying stomach. Prior hernia repair. BONES: No acute fracture. No worrisome bone lesions. OTHER: No other significant finding. IMPRESSION: No acute findings. NG tube is in place as described. TECHNICAL DOCUMENTATION: JOB ID: [id number] 2010 [employer]- All Rights Reserved Reading location - IP/workstation name: [email or web address]
--- NOTE | 2019-07-09 15:22 | RADIOLOGY REPORT (SQ) ---
EXAM DESCRIPTION: CHEST SINGLE VIEW IMAGES COMPLETED DATE/TIME: 07/09/2019 3:05 pm REASON FOR STUDY: upright COMPARISON: None. EXAM PARAMETERS: NUMBER OF VIEWS: One view. TECHNIQUE: Single frontal radiographic view of the chest acquired. RADIATION DOSE: NA LIMITATIONS: None. FINDINGS: LUNGS AND PLEURA: No opacities, masses or pneumothorax. No pleural effusion. MEDIASTINUM AND HILAR STRUCTURES: No masses. Contour normal. HEART AND VASCULAR STRUCTURES: Heart normal in size. Normal vasculature. BONES: No acute findings. HARDWARE: NG tube is in place. Tip is not seen but is well below the GE junction. OTHER: No other significant finding. IMPRESSION: NO ACUTE RADIOGRAPHIC FINDING IN THE CHEST. TECHNICAL DOCUMENTATION: JOB ID: [id number] 2010 [employer]- All Rights Reserved Reading location - IP/workstation name: [email or web address]
[2019-07-09] MEDS ORDERED: RINGERS SOLUTION,LACTATED 1,000 ML IV ONE (15:55)
--- NOTE | 2019-07-09 19:04 | RADIOLOGY REPORT (SQ) ---
EXAM DESCRIPTION: CT ABD/PELVIS WITH IV ORAL; CT CHEST WITH IMAGES COMPLETED DATE/TIME: 07/09/2019 6:32 pm REASON FOR STUDY: sbo RADIATION DOSE: CT Rad equipment meets quality standard of care and radiation dose reduction techniq ues were employed. CTDIvol: 13.5 - 17.6 mGy. DLP: 1925 mGy-cm. . 30 mGy. LIMITATIONS: None. Comparison: CT abdomen pelvis 05/14/2014, 03/28/2018 Small bowel series 03/28/2018 KUB 07/09/2019 FINDINGS: There is diffuse distention of the esophagus from gastroesophageal reflux. An nasogastric tube is present. Massive distention of the stomach, duodenum, and jejunum is present. The patient has 3 midline ventral hernias, each containing dilated and non dilated small bowel loops. Hernias are as follows: Right lower quadrant hernia, axial image 80, coronal image 18. Abdominal wall defect measures at lora st 5 cm in diameter, hernia both dilated small bowel and nondilated small bowel and right colon. Left lower quadrant ventral hernia axial image 84, coronal image 19 through 25, abdominal wall defect at least 5 cm in diameter. Hernia contains both dilated and nondilated small bowel loops. Midline ventral panniculus hernia sagittal image 5, axial image coronal image 19. Abdominal wall def ect at 11 cm diameter. This hernia both dilated and nondilated small bowel loops. Review of the prior CT exam 03/28/2018 demonstrated the three ventral hernias, patient had a high-gra de proximal small bowel obstruction related to tethered loops along the left lower quadrant hernia at that time in 2018. CHEST: LUNGS AND PLEURA: Patchy bibasilar airspace disease is present, atelectasis versus aspiration. No pleural effusion. No pneumothorax. HILAR AND MEDIASTINAL STRUCTURES: Massive distention of the esophagus throughout the chest. There is a nasogastric tube throughout the esophagus, with the tip in the stomach. No mediastinal masses or adenopathy. HEART AND VASCULAR STRUCTURES: No aneurysm or dissection. No central pulmonary emboli. No pericardi al effusion. HARDWARE: Nasogastric tube tip in the stomach THYROID AND OTHER SOFT TISSUES: No masses. No adenopathy. BONES: No significant finding. OTHER: No other significant finding. ABDOMEN AND PELVIS: LIVER: Normal size. No masses. No dilated ducts. SPLEEN: Normal size. No focal lesions. PANCREAS: No masses. No significant calcifications. No adjacent inflammation or peripancreatic fluid collections. Pancreatic duct not dilated. GALLBLADDER: No identified stones by CT criteria. No inflammatory changes to suggest cholecystitis. ADRENAL GLANDS: No significant masses or asymmetry. RIGHT KIDNEY AND URETER: No solid masses. No significant calcification. No hydronephrosis or hydroure ter. LEFT KIDNEY AND URETER: No solid masses. No significant calcification. No hydronephrosis or hydrouret er. AORTA AND VESSELS: No aneurysm. No dissection. Renal arteries, SMA, celiac without stenosis. RETROPERITONEUM: No retroperitoneal adenopathy, hemorrhage or masses. BOWEL AND PERITONEAL CAVITY: As above. No ascites. No free intraperitoneal air or free fluid. APPENDIX: Normal. In the right lower quadrant hernia sac ABDOMINAL WALL: As above. Mesh from old ventral hernia repair coronal image 29 PELVIS: No mass or free fluid. Normal bladder. Normal size female pelvic organs BONES: No significant or acute findings. OTHER: No other significant finding. IMPRESSION: High-grade bowel obstruction with markedly distended stomach and esophagus Nasogastric tube tip in the stomach Ventral hernias containing bone dilated and nondilated small bowel. Mesh from old prior ventral mary ia surgery. NORMAL CT OF THE ABDOMEN AND PELVIS WITH ORAL AND INTRAVENOUS CONTRAST. TECHNICAL DOCUMENTATION: JOB ID: [id number] Quality ID # [id number]: Final reports with documentation of one or more dose reduction techniques (e.g., Au tomated exposure control, adjustment of the mA and/or kV according to patient size, use of iterative reconstruction technique) 2010 [employer]- All Rights Reserved RENAL FUNCTION: Creatinine 1.1 TECHNIQUE: CT scan of the chest performed using helical scanning technique with dynamic intravenous contrast injection. Images reviewed with lung, soft tissue and bone windows. Reconstructed coronal a nd sagittal MPR images reviewed. All images stored on PACS. CT scan of the abdomen and pelvis performed with intravenous and without oral contrastusing helical s chen technique with dynamic intravenous contrast injection. Images reviewed with lung, soft tissu e and bone windows. Reconstructed coronal and sagittal MPR images reviewed. Delayed images for eval uation of the urinary system also acquired and evaluated. All images stored on PACS. All CT scanners at this facility use dose modulation, iterative reconstruction, and/or weight based d osing when appropriate to reduce radiation dose to as low as reasonably achievable (ALARA). [facility]: Dose Right [facility]: CareDose [facility]: Dose Right [facility]: Teradose 4D [facility]: [employer] COMPARISON: Abdominal films 07/09/2027, 03/30/2018, 03/28/2018 CT abdomen pelvis 03/28/2018, 05/14/2014 CONTRAST TYPE AND DOSE: contrast/concentration: Isovue 350.00 mg/ml; Total Contrast Delivered: 94.0 ml; Total Saline Delivered: 47.8 ml Reading location - IP/workstation name: [id number]
[2019-07-09] MEDS ORDERED: DEXTROSE 5%-WATER 1000 ML 1,000 ML with SODIUM BICARBONATE 50 MEQ IV PRN ×2 (19:23)
[2019-07-09] MEDS ORDERED: SODIUM BICARBONATE 8.4% INJ 50 MEQ/50 ML DISP.SYRIN ONE ×3 (20:41→22:39)
[2019-07-09] MEDS ORDERED: RINGERS SOLUTION,LACTATED 1,000 ML IV PRN (21:33)
[2019-07-09] MEDS ORDERED: PROMETHAZINE HCL INJ 25 MG/1 ML VIAL IV PRN (21:33)
[2019-07-09] MEDS ORDERED: NICOTINE 21 MG/24 HR PATCH.TD24 TD PRN (21:38)
[2019-07-09] MEDS ORDERED: MORPHINE SULFATE 10 MG/ML INJ IV PRN (21:38)
[2019-07-09] MEDS ORDERED: LORAZEPAM INJ 2 MG/1 ML VIAL IV PRN (21:38)
[2019-07-09] MEDS ORDERED: ACETAMINOPHEN 650 MG SUPP.RECT PR PRN (21:38)
[2019-07-09] MEDS ORDERED: DEXTROSE 50%-WATER 25 GM/50 ML DISP.SYRIN IV PRN ×2 (21:40)
[2019-07-09] MEDS ORDERED: DEXTROSE 40% GEL 15 GM TUBE PO PRN ×2 (21:40)
[2019-07-09] MEDS ORDERED: GLUCAGON,HUMAN RECOMB 1 MG INJ IM PRN (21:40)
[2019-07-09] MEDS: POTASSI CL 20 MEQ/50 ML RIDER 20 MEQ/50 ML RTUPB IV SCH (21:49)
[2019-07-09 23:48] LABS: APPEARANCE,URINE SLIGHTLY-CLOUDY; BILIRUBIN,URINE NEGATIVE (NEGATIVE); COLOR,URINE YELLOW; GLUCOSE, URINE NEGATIVE (NEGATIVE); KETONES,URINE NEGATIVE (NEGATIVE); LEUKOCYTE ESTERASE,URINE NEGATIVE (NEGATIVE); NITRITE,URINE NEGATIVE (NEGATIVE); PROTEIN,URINE 30 mg/dL (NEGATIVE); UROBILINOGEN,URINE NEGATIVE mg/dL (<2.0)
[2019-07-10] MEDS: LEVALBUTEROL HCL NEB 0.63 MG/3 ML AMPUL NEB PRN ×3 (00:18→20:34)
[2019-07-10] MEDS: POTASSI CL 20 MEQ/50 ML RIDER 20 MEQ/50 ML RTUPB IV SCH ×2 (00:30→03:12)
[2019-07-10] MEDS: HEPARIN SOD (PORCINE) 5,000 UNIT/ML 1 ML VIAL SUBCUT SCH ×4 (00:30→21:56)
[2019-07-10] MEDS: FAMOTIDINE INJ/PF 20 MG/2 ML SDV IV SCH ×3 (00:30→21:56)
[2019-07-10] MEDS: MORPHINE SULFATE 10 MG/ML INJ IV PRN ×3 (00:31→15:49)
--- NOTE | 2019-07-10 03:08 | PDOC H&P ---
History of Present Illness Admission Date/PCP: 07/09/2019 21:06 LATRICE MONTGOMERY MD Patient complains of: Abdominal pain History of Present Illness: KENDRA MONTES DE OCA is a 53 year old female who presents to the emergency room with a 5-day history of abdominal pain. She admits developing constant waxing and waning generalized, nonradiating aching and cramping abdominal pain accompanied by decreased urine output, severe nausea with vomiting and associated with a cough productive of whitish mucus. Her pain varies from moderate to extremely severe. She denies other associated or accompanying signs and symptoms. She admits multiple similar prior episodes due to intermittent small bowel obst ructions. She has not identified any aggravating or ameliorating factors for her abdominal pain. In the emergency room she was found to have an elevated white blood count but the CT of the abdomen and pelvis revealed a small bowel obstruction. She was subsequently admitted to the hospital for further evaluation and treatment at the request of the consulting surgeon Dr. Batista. Past Medical History Cardiac Medical History: Reports: Hyperlipidema, Hypertension Pulmonary Medical History: Reports: Chronic Obstructive Pulmonary Disease (COPD) Denies: Asthma, Tuberculosis EENT Medical History: Denies: Cataracts, Ears - Hearing aids Neurological Medical History: Denies: Hemorrhagic CVA, Ischemic CVA, Seizures Endocrine Medical History: Denies: Diabetes Mellitus Type 1, Diabetes Mellitus Type 2, Hyperthyroidism, Hypothyroidism Renal/ Medical History: Denies: Chronic Kidney Disease, Nephrolithiasis Malignancy Medical History: Reports: None GI Medical History: Reports: Other - Multiple recurrent hernias, small bowel obstructions Denies: Cirrhosis, Hepatitis Musculoskeltal Medical History: Denies: Arthritis, Gout Skin Medical History: Denies: Eczema, Psoriasis Psychiatric Medical History: Reports: Depression, Tobacco Dependency Denies: Alcohol Dependency, Substance Abuse Traumatic Medical History: Reports: None Hematology: Denies: Anemia, Bleeding Tendencies Infectious Medical History: Reports: None Past Surgical History Past Surgical History: Reports: Appendectomy, Section - 1998, Herniorrhaphy - Multiple ventral herniorrhaphies with mesh Social History Information Source: Patient Lives with: Family Smoking Status: Current Every Day Smoker Electronic Cigarette use?: No Frequency of Alcohol Use: Social Hx Recreational Drug Use: No Drugs: None Hx Prescription Drug Abuse: No - Advance Directive Resuscitation Status: Full Code Surrogate healthcare decision maker:: Trent Montes De Oca Family History Family History: Arthritis, CAD, Hypertension, Malignancy, Other - Alcoholism. denies: DM Parental Family History Reviewed: Yes Children Family History Reviewed: No Sibling(s) Family History Reviewed.: Yes Medication/Allergy Home Medications: No Home Medications 03/28/18 Allergies/Adverse Reactions: No Known Allergies Allergy (Verified 03/28/18 14:00) Review of Systems Constitutional: ABSENT: chills, fever(s) Eyes: ABSENT: visual disturbances, other - Eye pain Ears: ABSENT: hearing changes, other - Ear pain Nose, Mouth, and Throat: ABSENT: headache(s), sore throat Cardiovascular: ABSENT: chest pain, palpitations Respiratory: PRESENT: as per HPI, cough, sputum - Whitish Gastrointestinal: PRESENT: as per HPI, abdominal pain, bloating - Abdominal distention, constipation - No stool for 5 days or more, nausea, vomiting. ABSENT: diarrhea, hematemesis Genitourinary: PRESENT: other - Decreased urinary output. ABSENT: dysuria, hematuria Musculoskeletal: ABSENT: back pain, joint swelling Integumentary: ABSENT: pruritus, rash Neurological: ABSENT: confusion, convulsions, focal weakness, memory loss, syncope Psychiatric: ABSENT: anxiety, depression Endocrine: ABSENT: cold intolerance, heat intolerance, polydipsia, polyphagia, polyuria Hematologic/Lymphatic: ABSENT: easy bleeding, easy bruising Allergic/Immunologic: ABSENT: seasonal rhinorrhea Physical Exam Vital Signs: Temp Pulse Resp BP Pulse Ox 98.2 F 110 H 25 H 137/90 H 94 07/09/19 12:42 07/09/19 12:42 07/09/19 12:42 07/09/19 12:42 07/09/19 12:42 Intake & Output 07/07/19 07/08/19 07/09/19 23:59 23:59 23:59 Intake Total 4900 Balance 4900 General appearance: PRESENT: cooperative, mild distress - Secondary to abdominal pain, morbidly obese Head exam: PRESENT: atraumatic, normocephalic Eye exam: ABSENT: conjunctival injection, scleral icterus Ear exam: PRESENT: normal external ear exam. ABSENT: bleeding, drainage Mouth exam: PRESENT: dry mucosa, neck supple Neck exam: ABSENT: thyromegaly, tracheal deviation Respiratory exam: PRESENT: clear to auscultation barb, symmetrical, unlabored Cardiovascular exam: PRESENT: RRR. ABSENT: clicks, gallop, rubs Pulses: PRESENT: normal radial pulses, normal dorsalis pedis pul Vascular exam: PRESENT: normal capillary refill. ABSENT: pallor GI/Abdominal exam: PRESENT: distended, hernia - Large ventral hernia noted, hypoactive bowel sounds - Tympanitic tinkling, tenderness - Generalized abdominal tenderness on palpation Rectal exam: PRESENT: deferred Extremities exam: ABSENT: joint swelling, pedal edema Musculoskeletal exam: ABSENT: deformity, dislocation Neurological exam: PRESENT: alert, oriented to person, oriented to place, oriented to time, oriented to situation, CN II-XII grossly intact. ABSENT: motor sensory deficit Psychiatric exam: PRESENT: appropriate affect, normal mood Skin exam: PRESENT: dry, intact, warm. ABSENT: jaundice, rash, urticaria Results Laboratory Results: 07/09/19 12:08 07/09/19 12:08 07/09/19 07/09/19 07/09/19 12:08 12:08 13:00 WBC 19.3 H RBC 5.64 H Hgb 16.6 H Hct 46.8 MCV 83 MCH 29.4 MCHC 35.5 RDW 13.9 Plt Count 612 H Seg Neutrophils % Not Reportable Sodium 130.8 L Potassium 3.5 L Chloride 95 L Carbon Dioxide 14 L Anion Gap 22 H BUN 25 H Creatinine 1.10 Est GFR ( Amer) > 60 Glucose 269 H Lactic Acid Calcium 10.0 Total Bilirubin 0.5 AST 16 Alkaline Phosphatase 79 Total Protein 8.1 Albumin 4.6 Urine Color Cancelled Urine Appearance Cancelled Urine pH Cancelled Ur Specific [place] Cancelled Urine Protein Cancelled Urine Glucose (UA) Cancelled Urine Ketones Cancelled Urine Blood Cancelled Urine Nitrite Cancelled Ur Leukocyte Esterase Cancelled Urine WBC (Auto) Cancelled Urine RBC (Auto) Cancelled 07/09/19 14:25 WBC RBC Hgb Hct MCV MCH MCHC RDW Plt Count Seg Neutrophils % Sodium Potassium Chloride Carbon Dioxide Anion Gap BUN Creatinine Est GFR ( Amer) Glucose Lactic Acid 1.9 Calcium Total Bilirubin AST Alkaline Phosphatase Total Protein Albumin Urine Color Urine Appearance Urine pH Ur Specific [place] Urine Protein Urine Glucose (UA) Urine Ketones Urine Blood Urine Nitrite Ur Leukocyte Esterase Urine WBC (Auto) Urine RBC (Auto) 07/09/19 07/09/19 12:08 12:08 Creatine Kinase < 20 L Troponin I < 0.012 Impressions: Abdomen/Pelvis CT 07/09/19 00:00 IMPRESSION: High-grade bowel obstruction with markedly distended stomach and esophagus Nasogastric tube tip in the stomach Ventral hernias containing bone dilated and nondilated small bowel. Mesh from old prior ventral hernia surgery. NORMAL CT OF THE ABDOMEN AND PELVIS WITH ORAL AND INTRAVENOUS CONTRAST. Chest X-Ray 07/09/19 14:02 IMPRESSION: NO ACUTE RADIOGRAPHIC FINDING IN THE CHEST. KUB X-Ray 07/09/19 14:02 IMPRESSION: No acute findings. NG tube is in place as described. Chest CT 07/09/19 15:10 IMPRESSION: High-grade bowel obstruction with markedly distended stomach and esophagus Nasogastric tube tip in the stomach Ventral hernias containing bone dilated and nondilated small bowel. Mesh from old prior ventral hernia surgery. NORMAL CT OF THE ABDOMEN AND PELVIS WITH ORAL AND INTRAVENOUS CONTRAST. Assessment and Plan - Diagnosis (1) Small bowel obstruction Is this a current diagnosis for this admission?: Yes (2) Ventral hernia Qualifiers: Obstruction and gangrene presence: without obstruction or gangrene Qualified Code(s): K43.9 - Ventral hernia without obstruction or gangrene Is this a current diagnosis for this admission?: Yes (3) Dehydration Is this a current diagnosis for this admission?: Yes (4) Leukocytosis Qualifiers: Leukocytosis type: bandemia Qualified Code(s): D72.825 - Bandemia Is this a current diagnosis for this admission?: Yes (5) Hyponatremia Is this a current diagnosis for this admission?: Yes (6) Metabolic acidosis Is this a current diagnosis for this admission?: Yes (7) Nausea & vomiting Qualifiers: Vomiting type: unspecified Vomiting Intractability: intractable Qualified Code(s): R11.2 - Nausea with vomiting, unspecified Is this a current diagnosis for this admission?: Yes (8) COPD (chronic obstructive pulmonary disease) Qualifiers: COPD type: unspecified COPD Qualified Code(s): J44.9 - Chronic obstructive pulmonary disease, unspecified Is this a current diagnosis for this admission?: Yes (9) Morbid obesity Is this a current diagnosis for this admission?: Yes (10) Smoker Is this a current diagnosis for this admission?: Yes - Plan Summary Summary: Patient is admitted to the medical floor for routine supportive and symptomatic cares. A surgical consult has been obtained with Dr. Batista. Patient will have a Germain catheter and an NG tube to low intermittent suction. She will receive IV fluids for maintenance and she will be n.p.o. She will receive morp soraida sulfate 2 to 4 mg IV every 2 hours on as-needed basis for pain using a sliding scale for dosage. She received Ativan 1 mg IV every 4 hours as needed for anxiety or restlessness. CBCs, metabolic profiles and magnesium levels to be obtained as needed. Smoking cessation is advised and counseled briefly at the bedside. Patient will have a nicotine replacement patch available for her use, if desired. - Time Time Spent with patient: 15-24 minutes Smoking Cessation Education: 3 to 10 minutes Medications reviewed and adjusted accordingly: Yes Anticipated discharge: Home - Inpatient Certification Based on my medical assessment, after consideration of the patient's comorbidities, presenting symptoms, or acuity I expect that the services needed warrant INPATIENT care.: Yes I certify that my determination is in accordance with my understanding of Medicare's requirements for reasonable and necessary INPATIENT services [42 CFR 412.3e].: Yes Medical Necessity: Significant Comorbidiites Make Outpatient Treatment Too Risky, Need Close Monitoring Due to Risk of Patient Decompensation, Need For IV Fluids, Need for Pain Control, Need for Surgery
[2019-07-10 05:49] LABS: HEMATOCRIT 35.5 % (36.0-47.0); MEAN CORPUSCULAR HEMOGLOBIN 29.2 pg (27.0-33.4); MEAN CORPUSCULAR HGB CONC 35.8 g/dL (32.0-36.0); MEAN CORPUSCULAR VOLUME 82 fl (80-97); PLATELET COUNT 397 10^3/uL (150-450); RED BLOOD COUNT 4.35 10^6/uL (3.72-5.28); RED CELL DISTRIBUTION WIDTH 13.9 % (11.5-14.0); WHITE BLOOD COUNT 10.1 10^3/uL (4.0-10.5)
[2019-07-10 05:50] LABS: HEMOGLOBIN 12.7 g/dL (12.0-15.5)
[2019-07-10 06:02] LABS: BLOOD UREA NITROGEN 17 mg/dL (7-20); CALCIUM 8.2 mg/dL (8.4-10.2); CHLORIDE 97 mmol/L (98-107); GLUCOSE 103 mg/dL (75-110); POTASSIUM 3.8 mmol/L (3.6-5.0)
[2019-07-10 06:12] LABS: ANION GAP 9 (5-19)
[2019-07-10 06:17] LABS: CARBON DIOXIDE 25 mmol/L (22-30)
[2019-07-10 06:31] LABS: THYROID STIMULATING HORMONE 0.68 uIU/mL (0.47-4.68)
[2019-07-10 06:32] LABS: FREE T3 2.52 pg/mL (2.77-5.27)
[2019-07-10 09:34] LABS: PATH REVIEW PATHOLOGIST REVIEWED
[2019-07-10] MEDS ORDERED: PHENOL/SODIUM PHENOLATE 100 SPRAY/177 ML BOTTLE PO PRN (12:02)
--- NOTE | 2019-07-10 12:43 | PDOC PROGRESS REPORT ---
Subjective Progress Note for:: 07/10/19 Subjective:: This is a 53-year-old female with several large internal hernia defects, presenting with a small bowel obstruction. She has nausea, vomiting, and obstipation. Patient reports that she feels much better than yesterday, however her NG tube continues to be productive. She denies any flatus or bowel movements at this time. The patient currently denies chest pain, shortness of breath, fevers, chills, nausea, vomiting, orthostasis, fatigue. She does have a productive cough. Reason For Visit: RECURRENT SMALL BOWEL OBSTRUCTION Physical Exam Vital Signs: Temp Pulse Resp BP Pulse Ox 98.4 F 94 18 108/65 90 L 07/09/19 23:00 07/10/19 00:20 07/10/19 00:20 07/09/19 23:00 07/10/19 00:20 Intake & Output 07/09/19 07/10/19 07/11/19 06:59 06:59 06:59 Intake Total 7000 Output Total 1450 Balance 5550 Weight 82.2 kg General appearance: PRESENT: no acute distress, cooperative Head exam: PRESENT: atraumatic, normocephalic Eye exam: PRESENT: EOMI, PERRLA Mouth exam: PRESENT: moist, neck supple Neck exam: ABSENT: meningismus, tenderness, thyromegaly, tracheal deviation Respiratory exam: PRESENT: unlabored. ABSENT: tachypnea, wheezes Cardiovascular exam: ABSENT: tachycardia Vascular exam: PRESENT: normal capillary refill GI/Abdominal exam: PRESENT: distended, hernia - Small bowel is palpable beneath the skin in the ventral midline. I can palpate at least 2 separate hernia defects., soft, tenderness - Mild to moderate, other - Her hernia feels partially reducible. There is no sign of peritonitis or acute abdomen.. ABSENT: guarding, rebound Rectal exam: PRESENT: deferred Extremities exam: ABSENT: clubbing Musculoskeletal exam: ABSENT: deformity Neurological exam: PRESENT: alert, awake, oriented to person, oriented to place, oriented to time, oriented to situation, CN II-XII grossly intact Psychiatric exam: ABSENT: agitated, anxious, depressed Focused psych exam: ABSENT: delusional Skin exam: ABSENT: cyanosis, erythema, jaundice Results Laboratory Results: 07/10/19 05:14 07/10/19 05:14 07/09/19 07/09/19 07/09/19 12:08 12:08 13:00 WBC 19.3 H RBC 5.64 H Hgb 16.6 H Hct 46.8 MCV 83 MCH 29.4 MCHC 35.5 RDW 13.9 Plt Count 612 H Seg Neutrophils % Not Reportable Sodium 130.8 L Potassium 3.5 L Chloride 95 L Carbon Dioxide 14 L Anion Gap 22 H BUN 25 H Creatinine 1.10 Est GFR ( Amer) > 60 Glucose 269 H Lactic Acid Calcium 10.0 Magnesium Total Bilirubin 0.5 AST 16 Alkaline Phosphatase 79 Total Protein 8.1 Albumin 4.6 TSH Free T3 pg/mL Urine Color Cancelled Urine Appearance Cancelled Urine pH Cancelled Ur Specific [place] Cancelled Urine Protein Cancelled Urine Glucose (UA) Cancelled Urine Ketones Cancelled Urine Blood Cancelled Urine Nitrite Cancelled Ur Leukocyte Esterase Cancelled Urine WBC (Auto) Cancelled Urine RBC (Auto) Cancelled 07/09/19 07/09/19 07/10/19 14:25 21:00 05:14 WBC 10.1 RBC 4.35 Hgb 12.7 D Hct 35.5 L MCV 82 MCH 29.2 MCHC 35.8 RDW 13.9 Plt Count 397 Seg Neutrophils % Sodium Potassium Chloride Carbon Dioxide Anion Gap BUN Creatinine Est GFR ( Amer) Glucose Lactic Acid 1.9 Calcium Magnesium Total Bilirubin AST Alkaline Phosphatase Total Protein Albumin TSH Free T3 pg/mL Urine Color YELLOW Urine Appearance SLIGHTLY-CLOUDY Urine pH 5.0 Ur Specific [place] 1.060 Urine Protein 30 H Urine Glucose (UA) NEGATIVE Urine Ketones NEGATIVE Urine Blood SMALL H Urine Nitrite NEGATIVE Ur Leukocyte Esterase NEGATIVE Urine WBC (Auto) 6 Urine RBC (Auto) 5 07/10/19 07/10/19 05:14 05:14 WBC RBC Hgb Hct MCV MCH MCHC RDW Plt Count Seg Neutrophils % Sodium 130.5 L Potassium 3.8 Chloride 97 L Carbon Dioxide 25 D Anion Gap 9 BUN 17 Creatinine 0.48 L Est GFR ( Amer) > 60 Glucose 103 Lactic Acid Calcium 8.2 L Magnesium 1.8 Total Bilirubin AST Alkaline Phosphatase Total Protein Albumin TSH 0.68 Free T3 pg/mL 2.52 L Urine Color Urine Appearance Urine pH Ur Specific [place] Urine Protein Urine Glucose (UA) Urine Ketones Urine Blood Urine Nitrite Ur Leukocyte Esterase Urine WBC (Auto) Urine RBC (Auto) 07/09/19 07/09/19 12:08 12:08 Creatine Kinase < 20 L Troponin I < 0.012 Impressions: Abdomen/Pelvis CT 07/09/19 00:00 IMPRESSION: High-grade bowel obstruction with markedly distended stomach and esophagus Nasogastric tube tip in the stomach Ventral hernias containing bone dilated and nondilated small bowel. Mesh from old prior ventral hernia surgery. NORMAL CT OF THE ABDOMEN AND PELVIS WITH ORAL AND INTRAVENOUS CONTRAST. Chest X-Ray 07/09/19 14:02 IMPRESSION: NO ACUTE RADIOGRAPHIC FINDING IN THE CHEST. KUB X-Ray 07/09/19 14:02 IMPRESSION: No acute findings. NG tube is in place as described. Chest CT 07/09/19 15:10 IMPRESSION: High-grade bowel obstruction with markedly distended stomach and esophagus Nasogastric tube tip in the stomach Ventral hernias containing bone dilated and nondilated small bowel. Mesh from old prior ventral hernia surgery. NORMAL CT OF THE ABDOMEN AND PELVIS WITH ORAL AND INTRAVENOUS CONTRAST. Assessment & Plan - Diagnosis (1) Small bowel obstruction Is this a current diagnosis for this admission?: Yes - Plan Summary Plan Summary: This is a 53-year-old female with a small bowel obstruction and a multiply recurrent ventral hernia. She had approximately 4 L of NG output yesterday. At the bedside today, I have manipulated the NG tube and removed another 2 L of output. Continue with NG decompression for now. Hopefully this will resolve her bowel obstruction. If she requires an operation, it will be a lengthy and arduous undertaking. She has a very high possibility of reaccumulating her vent ral hernia. Surgery will continue to follow this patient very closely with you.
[2019-07-10] MEDS ORDERED: DEXTROSE 5%-LACTATED RINGERS 1,000 ML IV PRN (16:14)
--- NOTE | 2019-07-10 16:21 | PDOC PROGRESS REPORT ---
Subjective Progress Note for:: 07/10/19 Subjective:: Patient states that her nausea feels better since NG tube was placed. Currently draining and not from NG tube. Still has some abdominal pain. States that she has had several episodes of small bowel obstruction before. Patient has not had any flatus no bowel movement. Reason For Visit: RECURRENT SMALL BOWEL OBSTRUCTION Physical Exam Vital Signs: Temp Pulse Resp BP Pulse Ox 99.2 F 88 18 99/49 L 93 07/10/19 12:03 07/10/19 13:07 07/10/19 13:07 07/10/19 12:03 07/10/19 12:03 Intake & Output 07/09/19 07/10/19 07/11/19 06:59 06:59 06:59 Intake Total 7000 Output Total 1450 3000 Balance 5550 -3000 Weight 82.2 kg General appearance: PRESENT: no acute distress, cooperative Neck exam: ABSENT: JVD Respiratory exam: PRESENT: clear to auscultation barb, unlabored. ABSENT: tachypnea, wheezes Cardiovascular exam: PRESENT: RRR, +S1, +S2. ABSENT: tachycardia GI/Abdominal exam: PRESENT: hernia, soft. ABSENT: firm, guarding, normal bowel sounds, rebound, rigid, tenderness Neurological exam: PRESENT: alert, awake, oriented to person, oriented to place, oriented to time, oriented to situation Results Laboratory Results: 07/10/19 05:14 07/10/19 05:14 07/09/19 07/10/19 07/10/19 21:00 05:14 05:14 WBC 10.1 RBC 4.35 Hgb 12.7 D Hct 35.5 L MCV 82 MCH 29.2 MCHC 35.8 RDW 13.9 Plt Count 397 Sodium 130.5 L Potassium 3.8 Chloride 97 L Carbon Dioxide 25 D Anion Gap 9 BUN 17 Creatinine 0.48 L Est GFR ( Amer) > 60 Glucose 103 Calcium 8.2 L Magnesium 1.8 TSH Free T3 pg/mL Urine Color YELLOW Urine Appearance SLIGHTLY-CLOUDY Urine pH 5.0 Ur Specific [place] 1.060 Urine Protein 30 H Urine Glucose (UA) NEGATIVE Urine Ketones NEGATIVE Urine Blood SMALL H Urine Nitrite NEGATIVE Ur Leukocyte Esterase NEGATIVE Urine WBC (Auto) 6 Urine RBC (Auto) 5 07/10/19 05:14 WBC RBC Hgb Hct MCV MCH MCHC RDW Plt Count Sodium Potassium Chloride Carbon Dioxide Anion Gap BUN Creatinine Est GFR ( Amer) Glucose Calcium Magnesium TSH 0.68 Free T3 pg/mL 2.52 L Urine Color Urine Appearance Urine pH Ur Specific [place] Urine Protein Urine Glucose (UA) Urine Ketones Urine Blood Urine Nitrite Ur Leukocyte Esterase Urine WBC (Auto) Urine RBC (Auto) 07/09/19 07/09/19 12:08 12:08 Creatine Kinase < 20 L Troponin I < 0.012 Impressions: Abdomen/Pelvis CT 07/09/19 00:00 IMPRESSION: High-grade bowel obstruction with markedly distended stomach and esophagus Nasogastric tube tip in the stomach Ventral hernias containing bone dilated and nondilated small bowel. Mesh from old prior ventral hernia surgery. NORMAL CT OF THE ABDOMEN AND PELVIS WITH ORAL AND INTRAVENOUS CONTRAST. Chest X-Ray 07/09/19 14:02 IMPRESSION: NO ACUTE RADIOGRAPHIC FINDING IN THE CHEST. KUB X-Ray 07/09/19 14:02 IMPRESSION: No acute findings. NG tube is in place as described. Chest CT 07/09/19 15:10 IMPRESSION: High-grade bowel obstruction with markedly distended stomach and esophagus Nasogastric tube tip in the stomach Ventral hernias containing bone dilated and nondilated small bowel. Mesh from old prior ventral hernia surgery. NORMAL CT OF THE ABDOMEN AND PELVIS WITH ORAL AND INTRAVENOUS CONTRAST. Assessment and Plan - Diagnosis (1) Small bowel obstruction Is this a current diagnosis for this admission?: Yes Plan: Recurrent complete high-grade small bowel obstruction. NG tube in place. Surgery following. Will place patient on D5 lactated Ringer's while patient is n.p.o. Has not passed flatus. Monitor electrolytes with daily metabolic panels and replete as needed. (2) Dehydration Is this a current diagnosis for this admission?: Yes Plan: IV fluids (3) Hyponatremia Is this a current diagnosis for this admission?: Yes Plan: Sodium of 130 likely secondary to dehydration/hypovolemia. Should likely improve with IV fluids. (4) Smoker Is this a current diagnosis for this admission?: Yes Plan: Nicotine patch as needed (5) Ventral hernia Qualifiers: Obstruction and gangrene presence: without obstruction or gangrene Qualifi ed Code(s): K43.9 - Ventral hernia without obstruction or gangrene Is this a current diagnosis for this admission?: Yes Plan: Stable at this time - Time Time Spent with patient: Less than 15 minutes
--- NOTE | 2019-07-11 00:09 | RADIOLOGY REPORT (SQ) ---
EXAM DESCRIPTION: [facility]: XR CHEST 1 VIEW CLINICAL HISTORY: 53 years Female; NG tube placememt; FINDINGS: Since yesterday, nasogastric tube is in place, tip in the body the stomach. Lungs are grossly unchanged, although exposure technique for this exam is optimized to visualize the nasogastric tube. Upper abdominal clips are noted. Mediastinum is grossly unremarkable. IMPRESSION: Nasogastric tube tip in the stomach
[2019-07-11 05:16] LABS: HEMATOCRIT 31.7 % (36.0-47.0); HEMOGLOBIN 11.3 g/dL (12.0-15.5); MEAN CORPUSCULAR HEMOGLOBIN 29.6 pg (27.0-33.4); MEAN CORPUSCULAR HGB CONC 35.7 g/dL (32.0-36.0); MEAN CORPUSCULAR VOLUME 83 fl (80-97); PLATELET COUNT 277 10^3/uL (150-450); RED BLOOD COUNT 3.83 10^6/uL (3.72-5.28); RED CELL DISTRIBUTION WIDTH 14.2 % (11.5-14.0); WHITE BLOOD COUNT 7.7 10^3/uL (4.0-10.5)
[2019-07-11 05:49] LABS: ALBUMIN 2.7 g/dL (3.5-5.0); ALKALINE PHOSPHATASE 43 U/L (38-126); ANION GAP 6 (5-19); ASPARTATE AMINO TRANSFERASE 15 U/L (14-36); BILIRUBIN,TOTAL 0.1 mg/dL (0.2-1.3); BLOOD UREA NITROGEN 10 mg/dL (7-20); CALCIUM 7.9 mg/dL (8.4-10.2); CARBON DIOXIDE 27 mmol/L (22-30); CHLORIDE 97 mmol/L (98-107); GLUCOSE 92 mg/dL (75-110); POTASSIUM 3.3 mmol/L (3.6-5.0); TOTAL PROTEIN 5.4 g/dL (6.3-8.2)
[2019-07-11] MEDS: HEPARIN SOD (PORCINE) 5,000 UNIT/ML 1 ML VIAL SUBCUT SCH ×3 (06:11→21:09)
[2019-07-11] MEDS: MORPHINE SULFATE 10 MG/ML INJ IV PRN ×2 (06:39→11:10)
[2019-07-11] MEDS ORDERED: DEXTROSE 5%-LACTATED RINGERS 1,000 ML with POTASSIUM CHLORIDE 20 MEQ IV PRN ×2 (08:36)
[2019-07-11] MEDS: LEVALBUTEROL HCL NEB 0.63 MG/3 ML AMPUL NEB PRN (08:57)
--- NOTE | 2019-07-11 09:21 | RADIOLOGY REPORT (SQ) ---
EXAM DESCRIPTION: KUB/ABDOMEN (SINGLE VIEW) IMAGES COMPLETED DATE/TIME: 07/11/2019 8:58 am REASON FOR STUDY: sbo COMPARISON: CT dated 07/09/2019 and KUB dated 07/09/2019 NUMBER OF VIEWS: One view. TECHNIQUE: Supine radiographic image of the abdomen acquired. LIMITATIONS: None. FINDINGS: BOWEL GAS PATTERN: Persistent large and small bowel distention. Curvilinear lucency now n oted along the inferior margin of the liver. Free air cannot be excluded. This can be confirmed wit h upright view or cross-table lateral as clinically indicated. CALCIFICATIONS: No suspicious calcifications. SOFT TISSUES: No gross mass or suggestion of organomegaly. HARDWARE: Surgical hardware throughout the abdomen and pelvis. NG tube remains in place. BONES: No acute fracture. No worrisome bone lesions. OTHER: No other significant finding. IMPRESSION: Persistent large and small bowel distention. Possible pneumoperitoneum on today's film. Correlation with upright view of the abdomen or cross-table lateral would be helpful for further ev aluation. COMMENT: This report was called to VJ GIRALDO MD at09:14 on 07/11/2019. TECHNICAL DOCUMENTATION: JOB ID: [id number] 2010 [employer]- All Rights Reserved Reading location - IP/workstation name: [email or web address]
[2019-07-11] MEDS ORDERED: AMPICILLIN SOD/SULBACTAM 3 GM VIAL IV SCH (10:00)
--- NOTE | 2019-07-11 10:07 | RADIOLOGY REPORT (SQ) ---
EXAM DESCRIPTION: ABDOMEN 2 VIEWS IMAGES COMPLETED DATE/TIME: 07/11/2019 9:57 am REASON FOR STUDY: r/o free air. upright and cross-table lateral COMPARISON: None. NUMBER OF VIEWS: Two views. TECHNIQUE: Supine and erect/decubitus radiographic images of the abdomen acquired. LIMITATIONS: None. FINDINGS: FREE AIR: None. No abnormal gas collections. LUNG BASES: Clear. BOWEL GAS PATTERN: Scattered air-fluid levels consistent with known small-bowel obstruction. NG tube is in satisfactory position. CALCIFICATIONS: No suspicious calcifications. SOFT TISSUES: No gross mass or suggestion of organomegaly. HARDWARE: Postsurgical changes throughout the abdomen are again noted. BONES: No acute fracture. No worrisome bone lesions. OTHER: No other significant finding. IMPRESSION: No free air is identified. Changes on the KUB presumably represent fat along the inferi or margin of the liver. Persistent small-bowel distention with scattered air-fluid levels. NG tube is in satisfactory position. TECHNICAL DOCUMENTATION: JOB ID: [id number] 2010 [employer]- All Rights Reserved Reading location - IP/workstation name: [email or web address]
[2019-07-11] MEDS: AMPICILLIN SODIUM/SULBACTAM NA 3 GM in NORMAL SALINE 100 ML IV SCH ×2 (10:26→18:16)
[2019-07-11] MEDS: FAMOTIDINE INJ/PF 20 MG/2 ML SDV IV SCH ×2 (10:27→21:09)
[2019-07-11] MEDS: POTASSI CL 20 MEQ/D5LR 1L 20 MEQ/1,000 ML RTUINJ IV PRN ×2 (10:29→21:09)
[2019-07-11] MEDS: ESCITALOPRAM OXALATE 10 MG TABLET PO SCH (11:08)
--- NOTE | 2019-07-11 13:02 | PDOC PROGRESS REPORT ---
Subjective Progress Note for:: 07/11/19 Subjective:: Patient still having some cough. Denies any nausea vomiting. NG tube still in place. Reason For Visit: RECURRENT SMALL BOWEL OBSTRUCTION Physical Exam Vital Signs: Temp Pulse Resp BP Pulse Ox 98.1 F 86 20 123/52 L 90 L 07/11/19 07:38 07/11/19 08:58 07/11/19 08:58 07/11/19 07:38 07/11/19 09:03 Intake & Output 07/10/19 07/11/19 07/12/19 06:59 06:59 06:59 Intake Total 7000 450 Output Total 1450 5275 Balance 7050 -5834 Weight 82.2 kg 82.2 kg General appearance: PRESENT: no acute distress, cooperative Neck exam: ABSENT: JVD Respiratory exam: PRESENT: clear to auscultation barb, unlabored. ABSENT: tachypnea, wheezes Cardiovascular exam: PRESENT: RRR, +S1, +S2. ABSENT: tachycardia GI/Abdominal exam: PRESENT: hernia, hypoactive bowel sounds, soft, tenderness - Mild. ABSENT: rebound, rigid Neurological exam: PRESENT: alert, awake, oriented to person, oriented to place, oriented to time Results Laboratory Results: 07/11/19 04:47 07/11/19 04:47 07/11/19 07/11/19 04:47 04:47 WBC 7.7 RBC 3.83 Hgb 11.3 L Hct 31.7 L MCV 83 MCH 29.6 MCHC 35.7 RDW 14.2 H Plt Count 277 Sodium 130.3 L Potassium 3.3 L Chloride 97 L Carbon Dioxide 27 Anion Gap 6 BUN 10 Creatinine 0.37 L Est GFR ( Amer) > 60 Glucose 92 Calcium 7.9 L Magnesium 1.7 Total Bilirubin 0.1 L AST 15 Alkaline Phosphatase 43 Total Protein 5.4 L Albumin 2.7 L 07/09/19 13:00 Sputum Gram Stain - Final 07/09/19 13:00 Sputum Sputum Culture - Final Klebsiella Pneumoniae Normal Divya 07/09/19 07/09/19 12:08 12:08 Creatine Kinase < 20 L Troponin I < 0.012 Impressions: Abdomen/Pelvis CT 07/09/19 00:00 IMPRESSION: High-grade bowel obstruction with markedly distended stomach and esophagus Nasogastric tube tip in the stomach Ventral hernias containing bone dilated and nondilated small bowel. Mesh from old prior ventral hernia surgery. NORMAL CT OF THE ABDOMEN AND PELVIS WITH ORAL AND INTRAVENOUS CONTRAST. Chest CT 07/09/19 15:10 IMPRESSION: High-grade bowel obstruction with markedly distended stomach and esophagus Nasogastric tube tip in the stomach Ventral hernias containing bone dilated and nondilated small bowel. Mesh from old prior ventral hernia surgery. NORMAL CT OF THE ABDOMEN AND PELVIS WITH ORAL AND INTRAVENOUS CONTRAST. Chest X-Ray 07/10/19 00:00 IMPRESSION: Nasogastric tube tip in the stomach Abdomen X-Ray 07/11/19 00:00 IMPRESSION: No free air is identified. Changes on the KUB presumably represent fat along the inferior margin of the liver. Persistent small-bowel distention with scattered air-fluid levels. NG tube is in satisfactory position. KUB X-Ray 07/11/19 00:00 IMPRESSION: Persistent large and small bowel distention. Possible pneumoperitoneum on today's film. Correlation with upright view of the abdomen or cross-table lateral would be helpful for further evaluation. Assessment and Plan - Diagnosis (1) Small bowel obstruction Is this a current diagnosis for this admission?: Yes Plan: Recurrent complete high-grade small bowel obstruction. NG tube in place. Surgery following. Will place patient on D5 lactated Ringer's while patient is n.p.o. Has not passed flatus still. Abdominal x-ray still showing significant small bowel obstruction Monitor electrolytes with daily metabolic panels and replete as needed. (2) Dehydration Is this a current diagnosis for this admission?: Yes Plan: IV fluids (3) Hyponatremia Is this a current diagnosis for this admission?: Yes Plan: Sodium of 130 likely secondary to dehydration/hypovolemia. Maintain on IV fluids. (4) Acute bacterial bronchitis Is this a current diagnosis for this admission?: Yes Plan: Klebsiella pneumonia growing on sputum culture. Chest x-ray does not show any evidence of pneumonia. Abdominal x-ray today shows clear lung bases. Will start patient on Unasyn. (5) Smoker Is this a current diagnosis for this admission?: Yes Plan: Nicotine patch as needed (6) Ventral hernia Qualifiers: Obstruction and gangrene presence: without obstruction or gangrene Qualified Code(s): K43.9 - Ventral hernia without obstruction or gangrene Is this a current diagnosis for this admission?: Yes Plan: Stable at this time - Time Time Spent with patient: Less than 15 minutes
--- NOTE | 2019-07-11 15:33 | PDOC PROGRESS REPORT ---
Subjective Progress Note for:: 07/11/19 Subjective:: This is a 53-year-old female with several large ventral hernia defects, presenting with a small bowel obstruction. She has nausea, vomiting, and obstipation. She also still experiences moderate abdominal pain. Patient reports that she again feels better than yesterday, however her NG tube continues to be productive. She denies any flatus or bowel movement. The patient currently denies chest pain, shortness of breath, fevers, chills, nausea, vomiting, orthostasis, fatigue. She continues to have a productive cough. Reason For Visit: RECURRENT SMALL BOWEL OBSTRUCTION Physical Exam Vital Signs: Temp Pulse Resp BP Pulse Ox 99.4 F 77 18 130/57 H 95 07/11/19 11:26 07/11/19 11:26 07/11/19 11:26 07/11/19 11:26 07/11/19 11:26 Intake & Output 07/10/19 07/11/19 07/12/19 06:59 06:59 06:59 Intake Total 7000 450 100 Output Total 1450 5275 Balance 5550 -4825 100 Weight 82.2 kg 82.2 kg Exam: General appearance: PRESENT: no acute distress, cooperative Head exam: PRESENT: atraumatic, normocephalic Eye exam: PRESENT: EOMI, PERRLA Mouth exam: PRESENT: moist, neck supple Neck exam: ABSENT: meningismus, tenderness, thyromegaly, tracheal deviation Respiratory exam: PRESENT: unlabored. ABSENT: tachypnea, wheezes Cardiovascular exam: ABSENT: tachycardia Vascular exam: PRESENT: normal capillary refill GI/Abdominal exam: PRESENT: distended, hernia - Small bowel is palpable beneath the skin in the ventral midline. I can palpate at least 2 separate hernia defects., soft, tenderness - Mild to moderate, other - Her hernia feels partially reducible. There is no sign of peritonitis or acute abdomen.. ABSENT: guarding, rebound Rectal exam: PRESENT: deferred Extremities exam: ABSENT: clubbing Musculoskeletal exam: ABSENT: deformity Neurological exam: PRESENT: alert, awake, oriented to person, oriented to place, oriented to time, oriented to situation, CN II-XII grossly intact Psychiatric exam: ABSENT: agitated, anxious, depressed Focused psych exam: ABSENT: delusional Skin exam: ABSENT: cyanosis, erythema, jaundice Results Laboratory Results: 07/11/19 04:47 07/11/19 04:47 07/11/19 07/11/19 04:47 04:47 WBC 7.7 RBC 3.83 Hgb 11.3 L Hct 31.7 L MCV 83 MCH 29.6 MCHC 35.7 RDW 14.2 H Plt Count 277 Sodium 130.3 L Potassium 3.3 L Chloride 97 L Carbon Dioxide 27 Anion Gap 6 BUN 10 Creatinine 0.37 L Est GFR ( Amer) > 60 Glucose 92 Calcium 7.9 L Magnesium 1.7 Total Bilirubin 0.1 L AST 15 Alkaline Phosphatase 43 Total Protein 5.4 L Albumin 2.7 L 07/09/19 13:00 Sputum Gram Stain - Final 07/09/19 13:00 Sputum Sputum Culture - Final Klebsiella Pneumoniae Normal Divya 07/09/19 07/09/19 12:08 12:08 Creatine Kinase < 20 L Troponin I < 0.012 Impressions: Abdomen/Pelvis CT 07/09/19 00:00 IMPRESSION: High-grade bowel obstruction with markedly distended stomach and esophagus Nasogastric tube tip in the stomach Ventral hernias containing bone dilated and nondilated small bowel. Mesh from old prior ventral hernia surgery. NORMAL CT OF THE ABDOMEN AND PELVIS WITH ORAL AND INTRAVENOUS CONTRAST. Chest CT 07/09/19 15:10 IMPRESSION: High-grade bowel obstruction with markedly distended stomach and esophagus Nasogastric tube tip in the stomach Ventral hernias containing bone dilated and nondilated small bowel. Mesh from old prior ventral hernia surgery. NORMAL CT OF THE ABDOMEN AND PELVIS WITH ORAL AND INTRAVENOUS CONTRAST. Chest X-Ray 07/10/19 00:00 IMPRESSION: Nasogastric tube tip in the stomach Abdomen X-Ray 07/11/19 00:00 IMPRESSION: No free air is identified. Changes on the KUB presumably represent fat along the inferior margin of the liver. Persistent small-bowel distention with scattered air-fluid levels. NG tube is in satisfactory position. KUB X-Ray 07/11/19 00:00 IMPRESSION: Persistent large and small bowel distention. Possible pneumoperitoneum on today's film. Correlation with upright view of the abdomen or cross-table lateral would be helpful for further evaluation. Assessment & Plan - Diagnosis (1) Small bowel obstruction Is this a current diagnosis for this admission?: Yes - Plan Summary Plan Summary: This is a 53-year-old female with a small bowel obstruction and a multiply recurrent ventral hernia. Her NG tube output has slowed somewhat. She still denies any flatus or bowel movements. Continue with NG decompression for now. Hopefully this will resolve her bowel obstruction. Currently, she does not exhibit signs of peritonitis. If her small bowel obstruction does not resolve soon, an operation may be necessary. If she requires an operation, it will be a lengthy and arduous undertaking. She has almost a 100% probability of reaccumulating her ventral hernia after surgery. Surgery will continue to fo llow this patient very closely with you.
[2019-07-12] MEDS: AMPICILLIN SODIUM/SULBACTAM NA 3 GM in NORMAL SALINE 100 ML IV SCH ×3 (01:12→17:59)
[2019-07-12] MEDS: HEPARIN SOD (PORCINE) 5,000 UNIT/ML 1 ML VIAL SUBCUT SCH ×3 (05:23→21:42)
[2019-07-12 05:39] LABS: HEMOGLOBIN 11.2 g/dL (12.0-15.5); MEAN CORPUSCULAR HEMOGLOBIN 29.1 pg (27.0-33.4); MEAN CORPUSCULAR VOLUME 83 fl (80-97); PLATELET COUNT 256 10^3/uL (150-450); RED BLOOD COUNT 3.85 10^6/uL (3.72-5.28); RED CELL DISTRIBUTION WIDTH 13.7 % (11.5-14.0); WHITE BLOOD COUNT 6.8 10^3/uL (4.0-10.5)
[2019-07-12 05:49] LABS: ANION GAP 5 (5-19); BLOOD UREA NITROGEN 5 mg/dL (7-20); CALCIUM 7.7 mg/dL (8.4-10.2); CARBON DIOXIDE 30 mmol/L (22-30); CHLORIDE 100 mmol/L (98-107); GLUCOSE 87 mg/dL (75-110); POTASSIUM 3.3 mmol/L (3.6-5.0)
[2019-07-12] MEDS ORDERED: MORPHINE SULFATE 10 MG/ML INJ IV PRN (07:40)
[2019-07-12] MEDS: LEVALBUTEROL HCL NEB 0.63 MG/3 ML AMPUL NEB PRN (08:41)
--- NOTE | 2019-07-12 09:59 | PDOC PROGRESS REPORT ---
Subjective Subjective:: This is a 53-year-old female with several large ventral hernia defects, presenting with a small bowel obstruction. The patient feels better again today. The color of her NG aspirate is clearing. She reports multiple episodes of flatus overnight. The patient currently denies chest pain, shortness of breath, fevers, chills, nausea, vomiting, orthostasis, fatigue. She continues to have a productive cough. Reason For Visit: RECURRENT SMALL BOWEL OBSTRUCTION Physical Exam Vital Signs: Temp Pulse Resp BP Pulse Ox 97.6 F 75 16 103/71 92 07/11/19 23:00 07/12/19 08:00 07/12/19 08:00 07/11/19 23:00 07/12/19 08:56 Intake & Output 07/11/19 07/12/19 07/13/19 06:59 06:59 06:59 Intake Total 450 1300 Output Total 5275 2080 Balance -4825 -780 Weight 82.2 kg 82.2 kg Exam: General appearance: PRESENT: no acute distress, cooperative Head exam: PRESENT: atraumatic, normocephalic Eye exam: PRESENT: EOMI, PERRLA Mouth exam: PRESENT: moist, neck supple Neck exam: ABSENT: meningismus, tenderness, thyromegaly, tracheal deviation Respiratory exam: PRESENT: unlabored. ABSENT: tachypnea, wheezes Cardiovascular exam: ABSENT: tachycardia Vascular exam: PRESENT: normal capillary refill GI/Abdominal exam: PRESENT: distended, hernia - Small bowel is palpable beneath the skin in the ventral midline. I can palpate at least 2 separate hernia defects., soft, tenderness - Mild, other - Her hernia feels partially reducible. There is no sign of peritonitis or acute abdomen.. ABSENT: guarding, rebound Rectal exam: PRESENT: deferred Extremities exam: ABSENT: clubbing Musculoskeletal exam: ABSENT: deformity Neurological exam: PRESENT: alert, awake, oriented to person, oriented to place, oriented to time, oriented to situation, CN II-XII grossly intact Psychiatric exam: ABSENT: agitated, anxious, depressed Focused psych exam: ABSENT: delusional Skin exam: ABSENT: cyanosis, erythema, jaundice Results Laboratory Results: 07/12/19 04:49 07/12/19 04:49 07/12/19 07/12/19 04:49 04:49 WBC 6.8 RBC 3.85 Hgb 11.2 L Hct 32.0 L MCV 83 MCH 29.1 MCHC 35.0 RDW 13.7 Plt Count 256 Sodium 134.5 L Potassium 3.3 L Chloride 100 Carbon Dioxide 30 Anion Gap 5 BUN 5 L Creatinine 0.35 L Est GFR ( Amer) > 60 Glucose 87 Calcium 7.7 L Magnesium 1.8 07/09/19 13:00 Sputum Gram Stain - Final 07/09/19 13:00 Sputum Sputum Culture - Final Klebsiella Pneumoniae Normal Divya 07/09/19 07/09/19 12:08 12:08 Creatine Kinase < 20 L Troponin I < 0.012 Impressions: Abdomen/Pelvis CT 07/09/19 00:00 IMPRESSION: High-grade bowel obstruction with markedly distended stomach and esophagus Nasogastric tube tip in the stomach Ventral hernias containing bone dilated and nondilated small bowel. Mesh from old prior ventral hernia surgery. NORMAL CT OF THE ABDOMEN AND PELVIS WITH ORAL AND INTRAVENOUS CONTRAST. Chest CT 07/09/19 15:10 IMPRESSION: High-grade bowel obstruction with markedly distended stomach and esophagus Nasogastric tube tip in the stomach Ventral hernias containing bone dilated and nondilated small bowel. Mesh from old prior ventral hernia surgery. NORMAL CT OF THE ABDOMEN AND PELVIS WITH ORAL AND INTRAVENOUS CONTRAST. Chest X-Ray 07/10/19 00:00 IMPRESSION: Nasogastric tube tip in the stomach Abdomen X-Ray 07/11/19 00:00 IMPRESSION: No free air is identified. Changes on the KUB presumably represent fat along the inferior margin of the liver. Persistent small-bowel distention with scattered air-fluid levels. NG tube is in satisfactory position. KUB X-Ray 07/11/19 00:00 IMPRESSION: Persistent large and small bowel distention. Possible pneumoperitoneum on today's film. Correlation with upright view of the abdomen or cross-table lateral would be helpful for further evaluation. Assessment & Plan - Diagnosis (1) Small bowel obstruction Is this a current diagnosis for this admission?: Yes - Plan Summary Plan Summary: This is a 53-year-old female with a small bowel obstruction and a multiply recurrent ventral hernia. Her NG tube output has slowed and is clearing. She reports passing flatus overnight. Continue with NG decompression for now. The patient appears to be improving. Repeat x-rays tomorrow. Surgery will continue to follow this patient very closely with you. If the patient continues to improve, plan for NG removal tomorrow.
[2019-07-12] MEDS: ESCITALOPRAM OXALATE 10 MG TABLET PO SCH (11:16)
[2019-07-12] MEDS: FAMOTIDINE INJ/PF 20 MG/2 ML SDV IV SCH ×2 (11:16→21:41)
[2019-07-12] MEDS ORDERED: METOCLOPRAMIDE HCL INJ/PF 10 MG/2 ML SDV IV PRN (12:27)
[2019-07-12] MEDS ORDERED: LEVALBUTEROL HCL NEB 0.63 MG/3 ML AMPUL NEB PRN (12:32)
--- NOTE | 2019-07-12 12:32 | PDOC PROGRESS REPORT ---
Subjective Progress Note for:: 07/12/19 Subjective:: Patient has been having flatus today. States that she feels like a bowel movement is about to come on but has not had a bowel movement just yet. Denies any nausea or vomiting. States the pain is tolerable. Reason For Visit: RECURRENT SMALL BOWEL OBSTRUCTION Physical Exam Vital Signs: Temp Pulse Resp BP Pulse Ox 98.3 F 70 18 98/64 L 92 07/12/19 08:03 07/12/19 08:03 07/12/19 08:03 07/12/19 08:03 07/12/19 08:56 Intake & Output 07/11/19 07/12/19 07/13/19 06:59 06:59 06:59 Intake Total 450 1300 Output Total 5275 2080 Balance -4869 -780 Weight 82.2 kg 82.2 kg General appearance: PRESENT: no acute distress, cooperative Neck exam: ABSENT: JVD Respiratory exam: PRESENT: clear to auscultation barb, unlabored. ABSENT: tachypnea, wheezes Cardiovascular exam: PRESENT: RRR, +S1, +S2. ABSENT: tachycardia GI/Abdominal exam: PRESENT: hernia, hypoactive bowel sounds, soft, tenderness. ABSENT: distended, firm, guarding, rebound, rigid Neurological exam: PRESENT: alert, awake, oriented to person, oriented to place, oriented to time, oriented to situation Psychiatric exam: ABSENT: agitated, anxious Focused psych exam: ABSENT: pressured speech Skin exam: ABSENT: jaundice Results Laboratory Results: 07/12/19 04:49 07/12/19 04:49 07/12/19 07/12/19 04:49 04:49 WBC 6.8 RBC 3.85 Hgb 11.2 L Hct 32.0 L MCV 83 MCH 29.1 MCHC 35.0 RDW 13.7 Plt Count 256 Sodium 134.5 L Potassium 3.3 L Chloride 100 Carbon Dioxide 30 Anion Gap 5 BUN 5 L Creatinine 0.35 L Est GFR ( Amer) > 60 Glucose 87 Calcium 7.7 L Magnesium 1.8 07/09/19 13:00 Sputum Gram Stain - Final 07/09/19 13:00 Sputum Sputum Culture - Final Klebsiella Pneumoniae Normal Divya 07/09/19 07/09/19 12:08 12:08 Creatine Kinase < 20 L Troponin I < 0.012 Impressions: Abdomen/Pelvis CT 07/09/19 00:00 IMPRESSION: High-grade bowel obstruction with markedly distended stomach and es ophagus Nasogastric tube tip in the stomach Ventral hernias containing bone dilated and nondilated small bowel. Mesh from old prior ventral hernia surgery. NORMAL CT OF THE ABDOMEN AND PELVIS WITH ORAL AND INTRAVENOUS CONTRAST. Chest CT 07/09/19 15:10 IMPRESSION: High-grade bowel obstruction with markedly distended stomach and esophagus Nasogastric tube tip in the stomach Ventral hernias containing bone dilated and nondilated small bowel. Mesh from old prior ventral hernia surgery. NORMAL CT OF THE ABDOMEN AND PELVIS WITH ORAL AND INTRAVENOUS CONTRAST. Chest X-Ray 07/10/19 00:00 IMPRESSION: Nasogastric tube tip in the stomach Abdomen X-Ray 07/11/19 00:00 IMPRESSION: No free air is identified. Changes on the KUB presumably represent fat along the inferior margin of the liver. Persistent small-bowel distention with scattered air-fluid levels. NG tube is in satisfactory position. KUB X-Ray 07/11/19 00:00 IMPRESSION: Persistent large and small bowel distention. Possible pneumoperitoneum on today's film. Correlation with upright view of the abdomen or cross-table lateral would be helpful for further evaluation. Assessment and Plan - Diagnosis (1) Small bowel obstruction Is this a current diagnosis for this admission?: Yes Plan: Recurrent complete high-grade small bowel obstruction. NG tube in place. Surgery following. Continue on D5 lactated Ringer's while n.p.o. potassium supplement increased given hypokalemia from gastric losses. Seems to be improving as patient is now having flatus. Still yet to have a bowel movement. KUB ordered for tomorrow Antiemetics and pain control as needed (2) Aspiration pneumonia Qualifiers: Aspiration pneumonia type: due to gastric secretions Laterality: unspecified laterality Lung location: unspecified part of lung Qualified Code(s): J69.0 - Pneumonitis due to inhalation of food and vomit Is this a current diagnosis for this admission?: Yes Plan: Sputum culture growing Klebsiella which is typically from the GI tract. Likely due to patient's vomiting may have had some aspiration since bowel obstruction started. Maintain on Unasyn. Blood cultures negative at 48 hours. (3) Dehydration Is this a current diagnosis for this admission?: Yes Plan: IV fluids (4) Hyponatremia Is this a current diagnosis for this admission?: Yes Plan: Likely secondary to dehydration/hypovolemia. Improving. Maintain on IV fluids while n.p.o. (5) Smoker Is this a current diagnosis for this admission?: Yes Plan: Nicotine patch as needed (6) Ventral hernia Qualifiers: Obstruction and gangrene presence: without obstruction or gangrene Qualified Code(s): K43.9 - Ventral hernia without obstruction or gangrene Is this a current diagnosis for this admission?: Yes Plan: Stable at this time - Time Time Spent with patient: Less than 15 minutes
[2019-07-12] MEDS: DEXTROSE 5%-LACTATED RINGERS 1,000 ML with POTASSIUM CHLORIDE 40 MEQ IV PRN ×2 (14:05)
[2019-07-13] MEDS: DEXTROSE 5%-LACTATED RINGERS 1,000 ML with POTASSIUM CHLORIDE 40 MEQ IV PRN ×4 (00:29→10:37)
[2019-07-13] MEDS: AMPICILLIN SODIUM/SULBACTAM NA 3 GM in NORMAL SALINE 100 ML IV SCH ×2 (02:06→09:24)
[2019-07-13] MEDS: HEPARIN SOD (PORCINE) 5,000 UNIT/ML 1 ML VIAL SUBCUT SCH ×2 (05:17→14:05)
[2019-07-13 06:37] LABS: GLUCOSE 89 mg/dL (75-110); POTASSIUM 4.2 mmol/L (3.6-5.0)
[2019-07-13 06:40] LABS: BLOOD UREA NITROGEN < 2 mg/dL (7-20)
[2019-07-13 06:43] LABS: CARBON DIOXIDE 27 mmol/L (22-30); CHLORIDE 107 mmol/L (98-107)
[2019-07-13 06:48] LABS: ANION GAP 4 (5-19)
--- NOTE | 2019-07-13 08:36 | RADIOLOGY REPORT (SQ) ---
EXAM DESCRIPTION: KUB/ABDOMEN (SINGLE VIEW) IMAGES COMPLETED DATE/TIME: 07/13/2019 8:27 am REASON FOR STUDY: sbo COMPARISON: 07/11/2019. NUMBER OF VIEWS: One view. TECHNIQUE: Supine radiographic image of the abdomen acquired. LIMITATIONS: None. FINDINGS: BOWEL GAS PATTERN: Normal bowel gas pattern. No dilated loops. CALCIFICATIONS: No suspicious calcifications. SOFT TISSUES: No gross mass or suggestion of organomegaly. HARDWARE: Surgical hardware. The nasogastric tube has been removed. BONES: No acute fracture. No worrisome bone lesions. OTHER: No other significant finding. IMPRESSION: SURGICAL CHANGES AND HARDWARE DESCRIBED NO RADIOGRAPHIC EVIDENCE FOR ACUTE ABDOMINAL DISEASE. TECHNICAL DOCUMENTATION: JOB ID: [id number] 2010 [employer]- All Rights Reserved Reading location - IP/workstation name: [email or web address]
[2019-07-13] MEDS: ESCITALOPRAM OXALATE 10 MG TABLET PO SCH (09:24)
[2019-07-13] MEDS: FAMOTIDINE INJ/PF 20 MG/2 ML SDV IV SCH (09:24)
--- NOTE | 2019-07-13 11:09 | PDOC DISCHARGE SUMMARY ---
General - Admit/Disc Date/PCP Admission Date/Primary Care Provider: 07/09/19 21:11 LATRICE MONTGOMERY MD Is a 53-year-old female who was admitted to the hospital with a recurrent small bowel obstruction secondary to multiple abdominal wall defects ventral hernia. She was noted to be dehydrated and had a leukocytosis upon her admission in addition that she had a history of COPD. She was admitted to the hospital NG tube was placed and was productive of large output. She remained on NG suction for a number of days at which time she started passing some flatus and the NG tube was removed. Subsequent to that she slowly improved to where she was having bowel function and tolerating a diet. I spoke to her at length about her abdominal wall and multiple ventral hernias and that she would require a component separation and ventral hernia repair at some point or else this would continue to cycle. At this point she is tolerating a regular diet her repeat KUB showed no dilated small bowel loops and she is passing stool. She is to be discharged home today and she will follow-up in surgical clinic as needed and follow-up with her primary MD. Discharge Date: 07/13/19 - Discharge Diagnosis Final Diagnosis: Small bowel obstruction ventral hernia - Additional Information Resuscitation Status: Full Code Discharge Diet: As Tolerated - f/u with me in surgery clinic in 7-10days [facility] Discharge Activity: Activity As Tolerated, No Lifting Over 10 Pounds Referrals: LATRICE MONTGOMERY MD [Primary Care Provider] - Follow up as needed Home Medications: Escitalopram Oxalate [Lexapro 10 mg Tablet] 20 mg PO DAILY 07/10/19 History of Present Illiness History of Present Illness: KENDRA MONTES DE OCA is a 53 year old female Physical Exam Vital Signs: Temp Pulse Resp BP Pulse Ox 98.2 F 72 16 99/69 L 93 07/13/19 07:54 07/13/19 08:47 07/13/19 08:47 07/13/19 07:54 07/13/19 08:47 Intake & Output 07/12/19 07/13/19 07/14/19 06:59 06:59 06:59 Intake Total 1300 1320 1120 Output Total 2080 1800 Balance -780 -480 1120 Weight 82.2 kg 82.2 kg Results Laboratory Results: WBC 6.8 10^3/uL (4.0-10.5) 04/09/20 04:49 RBC 3.85 10^6/uL (3.72-5.28) 07/12/19 04:49 Hgb 11.2 g/dL (12.0-15.5) L 07/12/19 04:49 Hct 32.0 % (36.0-47.0) L 07/12/19 04:49 MCV 83 fl (80-97) 07/12/19 04:49 MCH 29.1 pg (27.0-33.4) 07/12/19 04:49 MCHC 35.0 g/dL (32.0-36.0) 07/12/19 04:49 RDW 13.7 % (11.5-14.0) 07/12/19 04:49 Plt Count 256 10^3/uL (150-450) 07/12/19 04:49 Lymph % (Auto) Not Reportable 07/09/19 12:08 Bulloch % (Auto) Not Reportable 07/09/19 12:08 Eos % (Auto) Not Reportable 07/09/19 12:08 Baso % (Auto) Not Reportable 07/09/19 12:08 Absolute Neuts (auto) Not Reportable 07/09/19 12:08 Absolute Lymphs (auto) Not Reportable 07/09/19 12:08 Absolute Monos (auto) Not Reportable 07/09/19 12:08 Absolute Eos (auto) Not Reportable 07/09/19 12:08 Absolute Basos (auto) Not Reportable 07/09/19 12:08 Total Counted 100 07/09/19 12:08 Seg Neutrophils % Not Reportable 07/09/19 12:08 Seg Neuts % (Manual) 65 % (42-78) 07/09/19 12:08 Band Neutrophils % 13 % (3-5) H 07/09/19 12:08 Lymphocytes % (Manual) 4 % (13-45) L 07/09/19 12:08 Atypical Lymphs % 3 % (0) 07/09/19 12:08 Monocytes % (Manual) 14 % (3-13) H 07/09/19 12:08 Eosinophils % (Manual) 0 % (0-6) 07/09/19 12:08 Basophils % (Manual) 0 % (0-2) 07/09/19 12:08 Metamyelocytes % 1 % (0-1) 07/09/19 12:08 Abs Neuts (Manual) 15.2 10^3/uL (1.7-8.2) H 07/09/19 12:08 Abs Lymphs (Manual) 1.4 10^3/uL (0.5-4.7) 07/09/19 12:08 Abs Monocytes (Manual) 2.7 10^3/uL (0.1-1.4) H 07/09/19 12:08 Absolute Eos (Manual) 0.0 10^3/uL (0.0-0.6) 07/09/19 12:08 Abs Basophils (Manual) 0.0 10^3/uL (0.0-0.2) 07/09/19 12:08 Clumped Platelets PRESENT 07/09/19 12:08 Platelet Comment INCREASED 07/09/19 12:08 Polychromasia SLIGHT 07/09/19 12:08 Sodium 137.7 mmol/L (137-145) 07/13/19 05:28 Potassium 4.2 mmol/L (3.6-5.0) 07/13/19 05:28 Chloride 107 mmol/L (98-107) 07/13/19 05:28 Carbon Dioxide 27 mmol/L (22-30) 07/13/19 05:28 Anion Gap 4 (5-19) L 07/13/19 05:28 BUN < 2 mg/dL (7-20) L 07/13/19 05:28 Creatinine 0.32 mg/dL (0.52-1.25) L 07/13/19 05:28 Est GFR ( Amer) > 60 (>60) 07/13/19 05:28 Est GFR (MDRD) Non-Af > 60 (>60) 07/13/19 05:28 Glucose 89 mg/dL (75-110) 07/13/19 05:28 POC Glucose 95 mg/dL (70-110) 07/12/19 16:11 Hemoglobin A1c % 5.0 % (4.7-6.0) 07/10/19 05:14 Lactic Acid 1.9 mmol/L (0.7-2.1) 07/09/19 14:25 Calcium 8.0 mg/dL (8.4-10.2) L 07/13/19 05:28 Magnesium 1.8 mg/dL (1.6-2.3) 07/12/19 04:49 Total Bilirubin 0.1 mg/dL (0.2-1.3) L 07/11/19 04:47 Direct Bilirubin 0.0 mg/dL (0.0-0.4) 07/11/19 04:47 Neonat Total Bilirubin Not Reportable 07/11/19 04:47 Neonat Direct Bilirubin Not Reportable 07/11/19 04:47 Neonat Indirect Bili Not Reportable 07/11/19 04:47 AST 15 U/L (14-36) 07/11/19 04:47 ALT 6 U/L (<35) 07/11/19 04:47 Alkaline Phosphatase 43 U/L (38-126) 07/11/19 04:47 Creatine Kinase < 20 U/L (30-135) L 07/09/19 12:08 Troponin I < 0.012 ng/mL 07/09/19 12:08 Total Protein 5.4 g/dL (6.3-8.2) L 07/11/19 04:47 Albumin 2.7 g/dL (3.5-5.0) L 07/11/19 04:47 TSH 0.68 uIU/mL (0.47-4.68) 07/10/19 05:14 Free T3 pg/mL 2.52 pg/mL (2.77-5.27) L 07/10/19 05:14 Urine Color YELLOW 07/09/19 21:00 Urine Appearance SLIGHTLY-CLOUDY 07/09/19 21:00 Urine pH 5.0 (5.0-9.0) 07/09/19 21:00 Ur Specific Vaughn 1.060 07/09/19 21:00 Urine Protein 30 mg/dL (NEGATIVE) H 07/09/19 21:00 Urine Glucose (UA) NEGATIVE mg/dL (NEGATIVE) 07/09/19 21:00 Urine Ketones NEGATIVE mg/dL (NEGATIVE) 07/09/19 21:00 Urine Blood SMALL (NEGATIVE) H 07/09/19 21:00 Urine Nitrite NEGATIVE (NEGATIVE) 07/09/19 21:00 Urine Bilirubin NEGATIVE (NEGATIVE) 07/09/19 21:00 Urine Urobilinogen NEGATIVE mg/dL (<2.0) 07/09/19 21:00 Ur Leukocyte Esterase NEGATIVE (NEGATIVE) 07/09/19 21:00 Urine WBC (Auto) 6 /HPF 07/09/19 21:00 Urine RBC (Auto) 5 /HPF 07/09/19 21:00 U Hyaline Cast (Auto) Cancelled 07/09/19 13:00 Urine Bacteria (Auto) TRACE /HPF 07/09/19 21:00 Urine Red Cell Clumps Cancelled 07/09/19 13:00 Urine WBC Clumps Cancelled 07/09/19 13:00 Squamous Epi Cells Auto <1 /HPF 07/09/19 21:00 U Non-Squamous Epis Auto Cancelled 07/09/19 13:00 Calcium Carbonate Cryst Cancelled 07/09/19 13:00 Calcium Phosphate Cryst Cancelled 07/09/19 13:00 Calcium Oxalate Cr Auto Cancelled 07/09/19 13:00 Leucine Crystals Cancelled 07/09/19 13:00 Cystine Crystals Cancelled 07/09/19 13:00 Uric Acid Cryst (Auto) Cancelled 07/09/19 13:00 Triple Phos Cryst (Auto) Cancelled 07/09/19 13:00 Tyrosine Crystals Cancelled 07/09/19 13:00 Amorphous Sediment Auto Cancelled 07/09/19 13:00 Cellular Casts Cancelled 07/09/19 13:00 Epithelial Casts (Auto) Cancelled 07/09/19 13:00 Fatty Casts Cancelled 07/09/19 13:00 Granular Casts (Auto) Cancelled 07/09/19 13:00 Waxy Casts (Auto) Cancelled 07/09/19 13:00 Broad Casts Cancelled 07/09/19 13:00 RBC Casts (Auto) Cancelled 07/09/19 13:00 WBC Casts (Auto) Cancelled 07/09/19 13:00 Urine Mucus (Auto) FEW /LPF 07/09/19 21:00 U Trichomonas (Auto) Cancelled 07/09/19 13:00 Ur Yeast w Hyphae Cancelled 07/09/19 13:00 Urine Yeast (Budding) Cancelled 07/09/19 13:00 Urine Ascorbic Acid NEGATIVE (NEGATIVE) 07/09/19 21:00 Slides for Path Review PATHOLOGIST REVIEWED 07/09/19 12:08 07/09/19 12:08 Troponin I < 0.012 Impressions: Abdomen/Pelvis CT 07/09/19 00:00 IMPRESSION: High-grade bowel obstruction with markedly distended stomach and esophagus Nasogastric tube tip in the stomach Ventral hernias containing bone dilated and nondilated small bowel. Mesh from old prior ventral hernia surgery. NORMAL CT OF THE ABDOMEN AND PELVIS WITH ORAL AND INTRAVENOUS CONTRAST. Chest X-Ray 07/09/19 14:02 IMPRESSION: NO ACUTE RADIOGRAPHIC FINDING IN THE CHEST. KUB X-Ray 07/09/19 14:02 IMPRESSION: No acute findings. NG tube is in place as described. Chest CT 07/09/19 15:10 IMPRESSION: High-grade bowel obstruction with markedly distended stomach and esophagus Nasogastric tube tip in the stomach Ventral hernias containing bone dilated and nondilated small bowel. Mesh from old prior ventral hernia surgery. NORMAL CT OF THE ABDOMEN AND PELVIS WITH ORAL AND INTRAVENOUS CONTRAST. Chest X-Ray 07/10/19 00:00 IMPRESSION: Nasogastric tube tip in the stomach Abdomen X-Ray 07/11/19 00:00 IMPRESSION: No free air is identified. Changes on the KUB presumably represent fat along the inferior margin of the liver. Persistent small-bowel distention with scattered air-fluid levels. NG tube is in satisfactory position. KUB X-Ray 07/11/19 00:00 IMPRESSION: Persistent large and small bowel distention. Possible pneumoperitoneum on today's film. Correlation with upright view of the abdomen or cross-table lateral would be helpful for further evaluation. KUB X-Ray 07/13/19 06:00 IMPRESSION: SURGICAL CHANGES AND HARDWARE DESCRIBED NO RADIOGRAPHIC EVIDENCE FOR ACUTE ABDOMINAL DISEASE.
--- NOTE | 2019-07-13 11:54 | PDOC DISCHARGE SUMMARY ---
Impression - Admit/DC Date/PCP Admission Date/Primary Care Provider: 07/09/19 21:11 LATRICE MONTGOMERY MD Discharge Date: 07/13/19 - Discharge Diagnosis (1) Small bowel obstruction Is this a current diagnosis for this admission?: Yes (2) Aspiration pneumonia Is this a current diagnosis for this admission?: Yes (3) Dehydration Is this a current diagnosis for this admission?: Yes (4) Hyponatremia Is this a current diagnosis for this admission?: Yes (5) Smoker Is this a current diagnosis for this admission?: Yes (6) Ventral hernia Is this a current diagnosis for this admission?: Yes - Additional Information Resuscitation Status: Full Code Discharge Diet: As Tolerated - f/u with me in surgery clinic in 7-10days [facility] Discharge Activity: Activity As Tolerated, No Lifting Over 10 Pounds Referrals: [facility] [Provider Group] LATRICE MONTGOMERY MD [Primary Care Provider] - Follow up as needed Prescriptions: Amoxicillin/Potassium Clav [Augmentin 875-125 Tablet] 1 tab PO Q12 4 Days #8 tablet Home Medications: Escitalopram Oxalate [Lexapro 10 mg Tablet] 20 mg PO DAILY 07/10/19 Amoxicillin/Potassium Clav [Augmentin 875-125 Tablet] 1 tab PO Q12 4 Days #8 tablet 07/13/19 History of Present Illiness History of Present Illness: KENDRA MONTES DE OCA is a 53 year old female who presents to the emergency room with a 5-day history of abdominal pain. She admits developing constant waxing and waning generalized, nonradiating aching and cramping abdominal pain accompanied by decreased urine output, severe nausea with vomiting and associated with a cough productive of whitish mucus. Her pain varies from moderate to extremely severe. She denies other associated or accompanying signs and symptoms. She admits multiple similar prior episodes due to intermittent small bowel obstructions. She has not identified any aggravating or ameliorating factors for her abdominal pain. In the emergency room she was found to have an elevated white blood count but the CT of the abdomen and pelvis revealed a small bowel obstruction. She was subsequently admitted to the hospital for further evaluation and treatment at the request of the consulting surgeon Dr. Batista. Hospital Course Hospital Course: CT scan noted high-grade small bowel obstruction. Patient had complete small bowel obstruction. Patient was placed on NG tube and made n.p.o. Symptoms improved after couple of days. She was gradually reintroduced into diet yesterday after passing flatus and having a bowel movement. Patient has tolerated diet and had another bowel movement. Today patient was cleared by surgery for discharge regarding patient's small bowel obstruction. Patient has also been treated for aspiration pneumonia noted on CT scan of the chest. She did spike a low-grade fever. Sputum culture grew Klebsiella pneumonia which is consistent with GI source. Blood cultures negative. Patient has remained afebrile for the past couple of days and has been on Unasyn but will be transitioned to Augmentin for 4 more days to complete treatment. Patient is safe and stable for discharge at this time. Physical Exam Vital Signs: Temp Pulse Resp BP Pulse Ox 98.2 F 72 16 99/69 L 93 07/13/19 07:54 07/13/19 08:47 07/13/19 08:47 07/13/19 07:54 07/13/19 08:47 Intake & Output 07/12/19 07/13/19 07/14/19 06:59 06:59 06:59 Intake Total 1300 1320 1120 Output Total 2080 1800 Balance -780 -480 1120 Weight 82.2 kg 82.2 kg General appearance: PRESENT: no acute distress, cooperative Neck exam: ABSENT: JVD GI/Abdominal exam: PRESENT: hernia, normal bowel sounds. ABSENT: tenderness Neurological exam: PRESENT: alert, awake Results Laboratory Results: WBC 6.8 10^3/uL (4.0-10.5) 07/12/19 04:49 RBC 3.85 10^6/uL (3.72-5.28) 07/12/19 04:49 Hgb 11.2 g/dL (12.0-15.5) L 07/12/19 04:49 Hct 32.0 % (36.0-47.0) L 07/12/19 04:49 MCV 83 fl (80-97) 07/12/19 04:49 MCH 29.1 pg (27.0-33.4) 07/12/19 04:49 MCHC 35.0 g/dL (32.0-36.0) 07/12/19 04:49 RDW 13.7 % (11.5-14.0) 07/12/19 04:49 Plt Count 256 10^3/uL (150-450) 07/12/19 04:49 Lymph % (Auto) Not Reportable 07/09/19 12:08 [place] % (Auto) Not Reportable 07/09/19 12:08 Eos % (Auto) Not Reportable 07/09/19 12:08 Baso % (Auto) Not Reportable 07/09/19 12:08 Absolute Neuts (auto) Not Reportable 07/09/19 12:08 Absolute Lymphs (auto) Not Reportable 07/09/19 12:08 Absolute Monos (auto) Not Reportable 07/09/19 12:08 Absolute Eos (auto) Not Reportable 07/09/19 12:08 Absolute Basos (auto) Not Reportable 07/09/19 12:08 Total Counted 100 07/09/19 12:08 Seg Neutrophils % Not Reportable 07/09/19 12:08 Seg Neuts % (Manual) 65 % (42-78) 07/09/19 12:08 Band Neutrophils % 13 % (3-5) H 07/09/19 12:08 Lymphocytes % (Manual) 4 % (13-45) L 07/09/19 12:08 Atypical Lymphs % 3 % (0) 07/09/19 12:08 Monocytes % (Manual) 14 % (3-13) H 07/09/19 12:08 Eosinophils % (Manual) 0 % (0-6) 07/09/19 12:08 Basophils % (Manual) 0 % (0-2) 07/09/19 12:08 Metamyelocytes % 1 % (0-1) 07/09/19 12:08 Abs Neuts (Manual) 15.2 10^3/uL (1.7-8.2) H 07/09/19 12:08 Abs Lymphs (Manual) 1.4 10^3/uL (0.5-4.7) 07/09/19 12:08 Abs Monocytes (Manual) 2.7 10^3/uL (0.1-1.4) H 07/09/19 12:08 Absolute Eos (Manual) 0.0 10^3/uL (0.0-0.6) 07/09/19 12:08 Abs Basophils (Manual) 0.0 10^3/uL (0.0-0.2) 07/09/19 12:08 Clumped Platelets PRESENT 07/09/19 12:08 Platelet Comment INCREASED 07/09/19 12:08 Polychromasia SLIGHT 07/09/19 12:08 Sodium 137.7 mmol/L (137-145) 07/13/19 05:28 Potassium 4.2 mmol/L (3.6-5.0) 07/13/19 05:28 Chloride 107 mmol/L (98-107) 07/13/19 05:28 Carbon Dioxide 27 mmol/L (22-30) 07/13/19 05:28 Anion Gap 4 (5-19) L 07/13/19 05:28 BUN < 2 mg/dL (7-20) L 07/13/19 05:28 Creatinine 0.32 mg/dL (0.52-1.25) L 07/13/19 05:28 Est GFR ( Amer) > 60 (>60) 07/13/19 05:28 Est GFR (MDRD) Non-Af > 60 (>60) 07/13/19 05:28 Glucose 89 mg/dL (75-110) 07/13/19 05:28 POC Glucose 95 mg/dL (70-110) 07/12/19 16:11 Hemoglobin A1c % 5.0 % (4.7-6.0) 07/10/19 05:14 Lactic Acid 1.9 mmol/L (0.7-2.1) 07/09/19 14:25 Calcium 8.0 mg/dL (8.4-10.2) L 07/13/19 05:28 Magnesium 1.8 mg/dL (1.6-2.3) 07/12/19 04:49 Total Bilirubin 0.1 mg/dL (0.2-1.3) L 07/11/19 04:47 Direct Bilirubin 0.0 mg/dL (0.0-0.4) 07/11/19 04:47 Neonat Total Bilirubin Not Reportable 07/11/19 04:47 Neonat Direct Bilirubin Not Reportable 07/11/19 04:47 Neonat Indirect Bili Not Reportable 07/11/19 04:47 AST 15 U/L (14-36) 07/11/19 04:47 ALT 6 U/L (<35) 07/11/19 04:47 Alkaline Phosphatase 43 U/L (38-126) 07/11/19 04:47 Creatine Kinase < 20 U/L (30-135) L 07/09/19 12:08 Troponin I < 0.012 ng/mL 07/09/19 12:08 Total Protein 5.4 g/dL (6.3-8.2) L 07/11/19 04:47 Albumin 2.7 g/dL (3.5-5.0) L 07/11/19 04:47 TSH 0.68 uIU/mL (0.47-4.68) 07/10/19 05:14 Free T3 pg/mL 2.52 pg/mL (2.77-5.27) L 07/10/19 05:14 Urine Color YELLOW 07/09/19 21:00 Urine Appearance SLIGHTLY-CLOUDY 07/09/19 21:00 Urine pH 5.0 (5.0-9.0) 07/09/19 21:00 Ur Specific [place] 1.060 07/09/19 21:00 Urine Protein 30 mg/dL (NEGATIVE) H 07/09/19 21:00 Urine Glucose (UA) NEGATIVE mg/dL (NEGATIVE) 07/09/19 21:00 Urine Ketones NEGATIVE mg/dL (NEGATIVE) 07/09/19 21:00 Urine Blood SMALL (NEGATIVE) H 07/09/19 21:00 Urine Nitrite NEGATIVE (NEGATIVE) 07/09/19 21:00 Urine Bilirubin NEGATIVE (NEGATIVE) 07/09/19 21:00 Urine Urobilinogen NEGATIVE mg/dL (<2.0) 07/09/19 21:00 Ur Leukocyte Esterase NEGATIVE (NEGATIVE) 07/09/19 21:00 Urine WBC (Auto) 6 /HPF 07/09/19 21:00 Urine RBC (Auto) 5 /HPF 07/09/19 21:00 U Hyaline Cast (Auto) Cancelled 07/09/19 13:00 Urine Bacteria (Auto) TRACE /HPF 07/09/19 21:00 Urine Red Cell Clumps Cancelled 07/09/19 13:00 Urine WBC Clumps Cancelled 07/09/19 13:00 Squamous Epi Cells Auto <1 /HPF 07/09/19 21:00 U Non-Squamous Epis Auto Cancelled 07/09/19 13:00 Calcium Carbonate Cryst Cancelled 07/09/19 13:00 Calcium Phosphate Cryst Cancelled 07/09/19 13:00 Calcium Oxalate Cr Auto Cancelled 07/09/19 13:00 Leucine Crystals Cancelled 07/09/19 13:00 Cystine Crystals Cancelled 07/09/19 13:00 Uric Acid Cryst (Auto) Cancelled 07/09/19 13:00 Triple Phos Cryst (Auto) Cancelled 07/09/19 13:00 Tyrosine Crystals Cancelled 07/09/19 13:00 Amorphous Sediment Auto Cancelled 07/09/19 13:00 Cellular Casts Cancelled 07/09/19 13:00 Epithelial Casts (Auto) Cancelled 07/09/19 13:00 Fatty Casts Cancelled 07/09/19 13:00 Granular Casts (Auto) Cancelled 07/09/19 13:00 Waxy Casts (Auto) Cancelled 07/09/19 13:00 Broad Casts Cancelled 07/09/19 13:00 RBC Casts (Auto) Cancelled 07/09/19 13:00 WBC Casts (Auto) Cancelled 07/09/19 13:00 Urine Mucus (Auto) FEW /LPF 07/09/19 21:00 U Trichomonas (Auto) Cancelled 07/09/19 13:00 Ur Yeast w Hyphae Cancelled 07/09/19 13:00 Urine Yeast (Budding) Cancelled 07/09/19 13:00 Urine Ascorbic Acid NEGATIVE (NEGATIVE) 07/09/19 21:00 Slides for Path Review PATHOLOGIST REVIEWED 07/09/19 12:08 07/09/19 12:08 Troponin I < 0.012 Impressions: Abdomen/Pelvis CT 07/09/19 00:00 IMPRESSION: High-grade bowel obstruction with markedly distended stomach and esophagus Nasogastric tube tip in the stomach Ventral hernias containing bone dilated and nondilated small bowel. Mesh from old prior ventral hernia surgery. NORMAL CT OF THE ABDOMEN AND PELVIS WITH ORAL AND INTRAVENOUS CONTRAST. Chest X-Ray 07/09/19 14:02 IMPRESSION: NO ACUTE RADIOGRAPHIC FINDING IN THE CHEST. KUB X-Ray 07/09/19 14:02 IMPRESSION: No acute findings. NG tube is in place as described. Chest CT 07/09/19 15:10 IMPRESSION: High-grade bowel obstruction with markedly distended stomach and esophagus Nasogastric tube tip in the stomach Ventral hernias containing bone dilated and nondilated small bowel. Mesh from old prior ventral hernia surgery. NORMAL CT OF THE ABDOMEN AND PELVIS WITH ORAL AND INTRAVENOUS CONTRAST. Chest X-Ray 07/10/19 00:00 IMPRESSION: Nasogastric tube tip in the stomach Abdomen X-Ray 07/11/19 00:00 IMPRESSION: No free air is identified. Changes on the KUB presumably represent fat along the inferior margin of the liver. Persistent small-bowel distention with scattered air-fluid levels. NG tube is in satisfactory position. KUB X-Ray 07/11/19 00:00 IMPRESSION: Persistent large and small bowel distention. Possible pneumoperitoneum on today's film. Correlation with upright view of the abdomen or cross-table lateral would be helpful for further evaluation. KUB X-Ray 07/13/19 06:00 IMPRESSION: SURGICAL CHANGES AND HARDWARE DESCRIBED NO RADIOGRAPHIC EVIDENCE FOR ACUTE ABDOMINAL DISEASE. Plan Time Spent: Less than 30 Minutes Stroke Is this a Stroke Patient?: No Acute Heart Failure - Is this a Heart Failure Patient?: No
[2019-07-13 12:46] VITALS: BP 102/63
== END 2019-07-13 14:45 | disposition home or self-care (01) | DRG 393 ==
LOC: ER 12:02 → EH 21:11 → 4S 22:46
PROVIDERS: ADMIT Emergency Medicine; ATTEND Internal Medicine
DX: K43.0 Incisional hernia with obstruction, without gangrene (principal); J69.0 Pneumonitis due to inhalation of food and vomit; E87.1 Hypo-osmolality and hyponatremia; E87.2 Acidosis; J44.0 Chronic obstructive pulmonary disease with (acute) lower respiratory infection; E86.0 Dehydration; J44.9 Chronic obstructive pulmonary disease, unspecified; E78.5 Hyperlipidemia, unspecified; F32.9 Major depressive disorder, single episode, unspecified; E66.01 Morbid (severe) obesity due to excess calories; I10 Essential (primary) hypertension; B96.1 Klebsiella pneumoniae [K. pneumoniae] as the cause of diseases classified elsewhere; J20.9 Acute bronchitis, unspecified; E78.00 Pure hypercholesterolemia, unspecified; F17.210 Nicotine dependence, cigarettes, uncomplicated; Z79.899 Other long term (current) drug therapy
CPT/HCPCS: 36415; 71045; 71260; 74018; 74019; 74177; 80048; 80053; 81001; 82550; 82962; 83036; 83605; 83735; 84443; 84481; 84484; 85025; 85027; 87040; 87070; 87077; 87186; 87205; 93005; 93010; 94640; 94799; 96361; 96365; 96375; 99291; 99292; J0295; J1644; J2270; J2405; J2543; J3480; J3490; J7030; J7050; J7060; J7120; J7121; J7614; S0028